=== PATIENT | male | born 1940 | race Caucasian/White ===

== ENCOUNTER 2018-03-13 21:14 | Inpatient (IN) | payer OTHER, MEDICARE ==
[~2018-03-13] VITALS: Ht 170.2 cm; Wt 77.3 kg
[2018-03-13 19:29] LABS: ABSOLUTE BASOPHIL COUNT 0 /CUMM (0.0-0.2); ABSOLUTE EOSINOPHIL COUNT 0 /CUMM (0.0-0.7); ABSOLUTE GRANULOCYTE CT 5.6 /CUMM (1.4-6.5); ABSOLUTE LYMPH COUNT 1.1 /CUMM (1.2-3.4); BASOPHIL % 0 % (0.0-2.0); EOSINOPHIL % 0.4 % (0-5); GRANULOCYTE % 72.5 % (42.2-75.2); MEAN CORPUSCULAR HGB 33.1 PG (27.0-31.0); MEAN CORPUSCULAR VOLUME 100.5 FL (80.0-94.0); MEAN PLATELET VOLUME 9.4 FL (7.4-10.4); PLATELET COUNT 360 /CUMM (130-400); RBC DISTRIBUTION WIDTH 17.5 % (11.5-14.5); RED BLOOD CELL CT 1.88 /CUMM (4.70-6.10); WHITE BLOOD CELL COUNT 7.8 /CUMM (4.8-10.8)
[2018-03-13 20:49] LABS: HEMATOCRIT 18.8 % (42-52)
--- NOTE | 2018-03-13 21:35 | ED AMS/SEIZURE/WEAK/DIZZY ---
History of Present Illness General Chief Complaint: General Adult Stated Complaint: SIB DR JONES FOR LOW H&H Source: patient Exam Limitations: no limitations Vital Signs & Intake/Output Vital Signs & Intake/Output Vital Signs Date Time Temp Pulse Resp B/P B/P Pulse O2 O2 Flow FiO2 Mean Ox Delivery Rate 03/14 0054 97.8 64 20 136/58 100 Room Air 03/136 98.1 84 22 106/57 98 Room Air 03/137 97.0 113 18 115/68 99 Room Air ED Intake and Output 03/14 0000 03/13 1200 Intake Total 0 Output Total 0 Balance 0 Intake, Oral 0 Output, Urine 0 Patient 167 lb Weight Weight Reported by Patient Measurement Method Allergies Coded Allergies: NO KNOWN ALLERGIES (12/05/12) Triage Note: PT TO TRIAGE SENT IN BY FOR LOW H/H. PT SAW TODAY FOR C/O DIFFICULTY BREATHING AND SWOLLEN LEGS. PT SL PALE IN COLOR. Triage Nurses Notes Reviewed? yes Onset: Gradual Duration: week(s):, waxing and waning Timing: recent history Injury Environment: home Severity: moderate Modifying Factors: Improves With: rest. Associated Symptoms: increase fatigue HPI: 77 yo gentleman presents with increased fatigue and weakness, Past History Travel History Traveled to [place] past 21 day No Medical History Any Pertinent Medical History? 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 No Review of Systems Review of Systems Constitutional: Reports: no symptoms. EENTM: Reports: no symptoms. Respiratory: Reports: no symptoms. Cardiovascular: Reports: no symptoms. GI: Reports: no symptoms. Genitourinary: Reports: no symptoms. Musculoskeletal: Reports: no symptoms. Skin: Reports: no symptoms. Neurological/Psychological: Reports: no symptoms. Hematologic/Endocrine: Reports: no symptoms. Immunologic/Allergic: Reports: no symptoms. All Other Systems: Reviewed and Negative Physical Exam Physical Exam General Appearance: well developed/nourished, no apparent distress Head: atraumatic, normal appearance Eyes: Bilateral: normal appearance. Ears, Nose, Throat: normal pharynx, normal ENT inspection Neck: normal inspection, supple, full range of motion Respiratory: normal breath sounds, chest non-tender, no respiratory distress, quiet respiration, lungs clear Cardiovascular: regular rate/rhythm Gastrointestinal: normal bowel sounds, soft, non-tender, no organomegaly Rectal: guiac + per pt report from MD's office. Back: normal inspection Extremities: normal range of motion Neurologic/Psych: no motor/sensory deficits, awake, alert, oriented x 3 Skin: intact, normal color, warm/dry Core Measures ACS in differential dx? No CVA/TIA Diagnosis No Sepsis Present: No Sepsis Focused Exam Completed? No Progress Differential Diagnosis: upper vs lower gi bleed. Plan of Care: Orders Procedure Date/time Status Nothing by Mouth 03/14 B Active TROPONIN LEVEL 03/14 1200 Active CBC WITHOUT DIFFERENTIAL 03/14 1200 Active EKG 03/14 1200 Active TROPONIN LEVEL 03/14 0400 Active CBC WITHOUT DIFFERENTIAL 03/14 0400 Active BASIC ELECTROLYTES PLUS BUN&CR 03/14 0400 Active EKG 03/14 0400 Active BLOOD PRODUCT PICKUP 03/14 0211 Active LEUKOCYTE POOR (PACKED CELLS) 03/14 0200 Active Weight 03/14 0120 Active Vital Signs 03/14 0120 Active Teach/Educate 03/14 0120 Active Pain Treatment and Response 03/14 0120 Active Nutritional Intake, Monitor 03/14 0120 Active Isolation 03/14 0120 Active Intake & Output 03/14 0120 Active Patient Care Conference 03/14 0120 Active Activity/Ambulation 03/14 0120 Active URINE OSMOLALITY 03/14 0040 Complete URINALYSIS 03/14 0030 Complete Lab Add-on Test 03/14 UNK Active FingerStick- Glucose 03/14 UNK Active LEUKOCYTE POOR (PACKED CELLS) 03/13 2334 Active Pathway - chart 03/13 232 Active House Staff 03/13 232 Active Patient Data 03/13 2325 Active Code Status 03/13 2325 Active Patient Data 03/13 2321 Active Saline Lock 03/13 2225 Active Misc Message 03/13 2225 Active ED Holding Orders 03/13 2225 Active Admit to inpatient 03/13 2225 Active Vital Signs 03/13 2225 Active Code Status 03/13 222 Complete Intake & Output 03/13 2216 Active TROPONIN LEVEL 03/13 214 Complete SERUM OSMOLALITY 03/13 2145 Complete B-TYPE NATRIURETIC PEP (BNP) 03/13 2145 Complete PARTIAL THROMBOPLASTIN TIME 03/13 2130 Complete PROTHROMBIN TIME 03/13 2130 Complete TYPE & SCREEN (NOT X-MATCH) 03/13 2130 Active COMPREHENSIVE METABOLIC PANEL 03/13 2128 Complete CBC WITHOUT DIFFERENTIAL 03/13 2128 Complete EKG 03/13 2122 Active VTE Mechanical Prophylaxis 03/13 UNK Active Current Medications Sig/Cesar Start time Last Medication Dose Stop Time Status Admin Atorvastatin Calcium 20 MG 1700 03/14 1700 AC (Lipitor) Pantoprazole Sodium 40 MG BID 03/14 0900 AC (Protonix) Insulin Aspart 0 TIDAC 03/14 0800 AC (NovoLOG) Ibuprofen 600 MG Q6 03/13 2359 AC 03/14 (Motrin) 03/14 1801 0002 Acetaminophen 325 MG Q6 PRN 03/13 2330 AC (Tylenol) Laboratory Tests 03/14/18 0040: Urine Osmolality 03/14/18 0040: Urinalysis LIGHT H, Urine Color YEL, Urine Clarity HAZY H, Urine pH 6.0, Ur Specific [place] 1.020, Urine Protein TRACE H, Urine Ketones NEG, Urine Nitrite NEG, Urine Bilirubin NEG, Urine Urobilinogen 1.0, Ur Leukocyte Esterase NEG, Ur Microscopic SEDIMENT EXAMINED, Urine RBC 1-3, Urine WBC 3-5 H, Ur Epithelial Cells FEW, Urine Bacteria RARE H, Urine Mucus FEW, Urine Hemoglobin NEG, Urine Glucose NEG 03/13/182144: Anion Gap 13, Estimated GFR 49 L, BUN/Creatinine Ratio 17.9, Glucose 107 H, Serum Osmolality 273 L, Calcium 8.7, Total Bilirubin 0.7, AST 29, ALT 30, Alkaline Phosphatase 80, Troponin I < 0.01, [id number] Pept 2610 H, Total Protein 6.6, Albumin 3.8, Globulin 2.8, Albumin/Globulin Ratio 1.4, PT 20.0 H, INR 1.82 H, APTT 32, CBC w Diff NO MAN DIFF REQ, RBC 1.87 L, MCV 100.5 H, MCH 33.3 H, MCHC 33.1, RDW 18.0 H, MPV 8.6, Gran % 70.2, Lymphocytes % 15.0 L, Monocytes % 14.1 H, Eosinophils % 0.5, Basophils % 0.2, Absolute Granulocytes 6.4, Absolute Lymphocytes 1.4, Absolute Monocytes 1.3 H, Absolute Eosinophils 0, Absolute Basophils 0 03/13/18 2130: Troponin I Cancelled Initial ED EKG: AFIB Departure Departure Disposition: STILL A PATIENT Condition: Stable Clinical Impression Primary Impression: Anemia Secondary Impressions: GI bleed Referrals: Dmitry MAYEN,Darin Mcmanus (PCP/Family) Departure Forms: Customer Survey General Discharge Information Comments 03/13/18, 23:28... discussed with karis rodas (GI) who will evaluate patient in AM. stable for gen med (pt not orthostatic) Admission Note Spoke With: Joby Rossi MD Documentation of Exam: Documentation of any treatments & extenuating circumstances including Concerns Regarding Discharge (functional status, medication knowledge or non-compliance, living conditions, etc.) that warrant an admission rather than observation: pt with hgb 6 as outpt, confirmed upon arrival... dark stools, guiac positive, ... not orthostatic..pt on eliquis. pt merits blood transfusion (consent in chart), stable for gen med... call placed to GI. Critical Care Note Critical Care Note Critical Care Time: 30-74 min
[2018-03-13 21:59] LABS: ABSOLUTE BASOPHIL COUNT 0 /CUMM (0.0-0.2); ABSOLUTE EOSINOPHIL COUNT 0 /CUMM (0.0-0.7); ABSOLUTE GRANULOCYTE CT 6.4 /CUMM (1.4-6.5); ABSOLUTE LYMPH COUNT 1.4 /CUMM (1.2-3.4); ABSOLUTE MONOCYTE COUNT 1.3 /CUMM (0.10-0.60); BASOPHIL % 0.2 % (0.0-2.0); EOSINOPHIL % 0.5 % (0-5); GRANULOCYTE % 70.2 % (42.2-75.2); MEAN CORPUSCULAR HGB 33.3 PG (27.0-31.0); MEAN CORPUSCULAR HGB CONC 33.1 G/DL (33.0-37.0); MEAN CORPUSCULAR VOLUME 100.5 FL (80.0-94.0); MEAN PLATELET VOLUME 8.6 FL (7.4-10.4); PLATELET COUNT 355 /CUMM (130-400); RED BLOOD CELL CT 1.87 /CUMM (4.70-6.10); WHITE BLOOD CELL COUNT 9.1 /CUMM (4.8-10.8)
[2018-03-13 22:01] LABS: HEMATOCRIT 18.8 % (42-52)
[2018-03-13 22:09] LABS: PTT 32 SEC (25-37)
--- NOTE | 2018-03-13 23:29 | History & Physical ---
Mohini Hurtado 03/13/18 8271: General Information and HPI MD Statement: I have seen and personally examined FRANKI LAMB and documented this H&P. The patient is a 77 year old M who presented with a patient stated chief complaint of [GI Bleed]. Source of Information: patient, old records Exam Limitations: no limitations History of Present Illness: Mr. Lamb is a 77yo M w/ PMH of diverticulosis, polyps, HTN, remote bypass in 1997 w/ stents, CHF? (last echo in 2004), hx of A-fib on Amiodaron and Eliquis, prediabetic on metformin 500 BID, CC: Sent in by Dr. Andres for dropped H/H Patient was complaining of exertional shortness of breath/dyspnea/drops for the past 2 weeks, and he got tested for CBCs and stool studies at around 3 PM prior this admission. He was called later by his PCP Dr. Andres to go to the ER to evaluate for dropped H&H. He was also told to stop his eliquis (he had morning dose). His was on oxygen 10/06, so he does most of houseworks and had been feeling slightly exertional SOB/lethargic. He denied oj blood from stool/denied nausea/vomiting, and never had these before. He had an EGD prob 18 yrs ago. Denied NSAID use. His next colonoscopy not scheduled due to age. He had weight loss from 07/2017 due to housework. During our clinical interaction, patient denied fever/night sweat/cough/SOB/ Chest Pain/Palpitation/Abdominal pain/urinary abnormality, or other skin/ musculoskeletal/neurological disorders/mood change/insomnia/dietary/appetite change. 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 Ambulation: independent IADLs Independent: shopping, housework, finances, food prep, telephone, transportation , medication admin. Review of Systems Review of Systems Constitutional: Reports: see HPI. Exam & Diagnostic Data Last 24 Hrs of Vital Signs/I&O Vital Signs Date Time Temp Pulse Resp B/P B/P Pulse O2 O2 Flow FiO2 Mean Ox Delivery Rate 03/13 2226 98.1 84 22 106/57 98 Room Air 03/13 2127 97.0 113 18 115/68 99 Room Air Physical Exam General Appearance Alert, Oriented X3, Cooperative, No Acute Distress Skin No Rashes, No Breakdown, No Significant Lesion Skin Temp/Moisture Exam: Warm/Dry Sepsis Skin Exam (color): Normal for Ethnicity HEENT Atraumatic Neck Supple, No JVD Cardiovascular distant heart sound but appeared to be regular Lungs Clear to Auscultation, Normal Air Movement Abdomen Normal Bowel Sounds, Soft, No Tenderness Neurological Normal Speech Extremities Normal Pulses, +1 BLE edema Rectal No Hemorrhoids, Guaiac positive visible black stool residue but no oj blood/bleeding. no tenderness on exam Last 24 Hrs of Labs/Isaias: Laboratory Tests 03/13/182144: Anion Gap 13, Estimated GFR 49 L, BUN/Creatinine Ratio 17.9, Glucose 107 H, Calcium 8.7, Total Bilirubin 0.7, AST 29, ALT 30, Alkaline Phosphatase 80, Troponin I < 0.01, Total Protein 6.6, Albumin 3.8, Globulin 2.8, Albumin/ Globulin Ratio 1.4, PT 20.0 H, INR 1.82 H, APTT 32, CBC w Diff NO MAN DIFF REQ , RBC 1.87 L, MCV 100.5 H, MCH 33.3 H, MCHC 33.1, RDW 18.0 H, MPV 8.6, Gran % 70.2, Lymphocytes % 15.0 L, Monocytes % 14.1 H, Eosinophils % 0.5, Basophils % 0.2, Absolute Granulocytes 6.4, Absolute Lymphocytes 1.4, Absolute Monocytes 1.3 H, Absolute Eosinophils 0, Absolute Basophils 0 03/13/182129: Troponin I Cancelled Assessment/Plan Assessment: Mr. Lamb is a 77yo M w/ PMH of diverticulosis, polyps, HTN, remote bypass in 1997 w/ stents, CHF? (last echo in 2004), hx of A-fib on Amiodaron and Eliquis, prediabetic on metformin 500 BID, CC: Sent in by Dr. Andres for dropped H/H Patient was complaining of exertional shortness of breath/dyspnea/drops for the past 2 weeks, and he got tested for CBCs and stool studies at around 3 PM prior this admission. He was called later by his PCP Dr. Andres to go to the ER to evaluate for dropped H&H. He was also told to stop his eliquis (he had morning dose). His was on oxygen 10/06, so he does most of houseworks and had been feeling slightly exertional SOB/lethargic. He denied oj blood from stool/denied nausea/vomiting, and never had these before. He had an EGD prob 18 yrs ago. Denied NSAID use. His next colonoscopy not scheduled due to age. He had weight loss from 07/2017 due to housework. During our clinical interaction, patient denied fever/night sweat/cough/SOB/ Chest Pain/Palpitation/Abdominal pain/urinary abnormality, or other skin/ musculoskeletal/neurological disorders/mood change/insomnia/dietary/appetite change. On admission, Vitals: Stable afebrile, tachycardia on presentation 114 decreased to 84, room air -CBC: H/H 6.2/18.8, no leukocytosis -BMP: Na 125, K 4.5, Cr 1.4 elevated acutely from before -Misc: Colonoscopy 06/20/2015 IMPRESSION: 1. Polyps. 2. Diverticulosis. -Interventions in ER: PPI x 1, tylenol, motrin Problem list & Assessment: #Upper GI bleed of unknown source: dark stool without BRBPR. #Hyponatreamia: unknkown etiology, could be from use of lasix? #CHANEL #PMH of diverticulosis, polyps, HTN, remote bypass in 1997 w/ stents, CHF? (last echo in 2004) w/ chronic BLE edema, hx of A-fib on Amiodarone and Eliquis, prediabetic on metformin 500 BID Hospital Course: - Admit to Gen Med - Supplemental O2 as needed if dyspnea - Novolog SS/AccuChek - 2U PRBC transfusion to keep Hb>8. Recheck CBC in 6 hours - Monitor for resp distress during PRBC transfusion and lasix 20mg in between as needed. - Hold all anti-hypertensives and Eliquis - Pending GI consult by Dr. Thompson - Pending CXR/ProBNP to rule out CHF - Pending Cardio consult by Dr. Orozco in the AM, with record of recent Echo. - EKG/Trop x 3 to rule out type 2 NH - Pending Serum/urine OSM for hyponatremia. - Both CHANEL and hyponatremia could be due to lasix use recently. Hold lasix for now. - Hold all fluids for now pending rule out CHF DVT prophylaxis ALPS NPO Full Code As Ranked By This Provider Problem List: 1. GI bleed 2. Anemia Core Measures/Misc (08/04) Acute Coronary Syndrome ACS Diagnosis: No Congestive Heart Failure Congestive Heart Failure Diagnosis No Cerebrovascular Accident CVA/TIA Diagnosis: No VTE (View Protocol) VTE Risk Factors Age>40 No Mechanical VTE Prophylaxis d/t N/A MechProphylax Ordered No VTE Pharm Prophylaxis d/t Medical Contraindication Sepsis (View protocol) Sepsis Present: No Janet Milton 03/14/18 0031: Resident Review Statement Resident Statement: examined this patient, discussed with campus recruiting intern Other Findings: Patient is a 77-year-old male with past medical history of A. fib on Eliquis, hypertension, diabetes, CABG with stents who was sent in to the ED by Dr. Andres for low H&H. Patient reports he has been feeling very tired, lethargic, fatigued for the past 2 weeks. He normally does all the housework including grocery shopping, cooking , taking care of dogs, doing laundry. However for the past 2 weeks he has been feeling increasingly short of breath on exertion. His appetite has been poor and he also noted dark stools. Denies any bright red blood per rectum, hematemesis or hemoptysis. He went to see his PCP today for the above symptoms and that is done at his office showed an H&H of 6. 2/18.8. Dr. Andres asked him to stop his Eliquis and took him off ramipril, amlodipine due to low blood pressure. Patient reports that he has recently noted increased swelling in his legs for which she was started on Lasix. He denies any NSAID use, history of ulcers in the past. His last endoscopy was about 18 years ago. He had multiple colonoscopies which revealed polyps and diverticulosis. Of note patient had noted a weight loss of about 8 pounds in the last 6 months which he says was due to overexertion. He is an ex-smoker and quit about 20 years ago. Denies any chest pain, palpitations, fevers, chills, nausea, vomiting, diarrhea, constipation. In the ED with a blood pressure of 115/68. Labs significant for an H&H of 6.2 /18.8(10.3 in Nov 2017), MCV 100.5, sodium 125(132 in Nov 2017), creatinine 1.4(baseline 1), troponin 0.01, INR 1.82 Rectal exam: Guaiac positive, no hemorrhoids, dark stool seen at anus, no oj bleeding EKG A. 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 fib on Eliquis Leg edema? CHF Prediabetes Plan * Admit patient to [facility] * Vitals per protocol * 2 wide bore IVs at all times * CBC every 8 hours * Type and screen * Transfuse 2 units of blood to keep hemoglobin above 8 * IV Lasix in between transfusions * Eliquis and aspirin held for bleeding * Hold all blood pressure medications(amlodipine 5 mg, metoprolol 100 mg, ramipril 10 mg) for borderline blood pressure. Please resume once blood pressure stable * GI consult with Dr. Thompson in a.m. * We will keep the patient nothing by mouth for possible endoscopy in a.m. * Check chest x-ray and proBNP to rule out CHF * Echocardiogram recently done at Dr. Orozco's office. Cardio consult with Dr. Orozco in a.m. * CHANEL likely secondary to Lasix started recently. Holding Lasix for now. We will hold off on any fluids until CHF ruled out. * Serum/urine osmolalities for hyponatremia, could be secondary to the Lasix started recently/SIADH * Fluid restriction 1200ml * Check BeP in a.m. * 3 times a day Accu-Cheks, low-dose sliding scale * DVT prophylaxis Alps * full code Joby Rossi 03/14/18 0552: Attending MD Review Statement Attending Statement Attending MD Statement: examined this patient, discuss w/resident/PA/LICENSED WEIGHER, agreed w/resident/PA/LICENSED WEIGHER, reviewed EMR data (avail), reviewed images, amended to note Attending Assessment/Plan: CC: Low hemoglobin PMH: HTN, DM, CAD S/P CABG, history of diverticulosis, A. fib Patient was sent by his primary care physician for low H&H. His last 2 weeks patient has been feeling poorly, lethargic, dyspnea on exertion and lightheaded when he is changing his position suddenly. He also noticed worsening leg swelling since last 2 weeks and black colored stools. He has been taking care of all household stuff as his is oxygen dependent and was not taking care of his health according to him. So finally he followed up with primary care physician who obtain lab work and his H&H was low, stool was positive for guaiac so he was sent to ER. Currently denies any chest pain, chest tightness, palpitations, dizziness, abdominal pain, nausea, vomiting, syncope or fall. He recently had tooth infection for which he was started on antibiotics for 4 days but he developed diarrhea so antibiotics were discontinued. He was also prescribed pain medications but he denies taking [id number] Motrin, Aleve or any pain medication as he is on aspirin. Vitals: Temperature 97.0, pulse 113, RR 18, blood pressure 115/68, saturating well on room air. On exam: A O 3, cooperative, no acute distress, neck supple, JVD normal, no lymphadenopathy, mucosa moist, no focal neurological deficit, +3 lower extremity edema, no obvious skin rashes or inflammation CVS: S1-S2, RRR. RS: Clear to auscultate bilaterally. Abdomen: Soft, NT, ND, bowel sounds present. CXR: No acute pulmonary findings. Mildly enlarged cardiac silhouette. Assessment and plan 77-year-old male with multiple comorbidities as mentioned above presented in ER for feeling poorly, lethargic, dyspnea on exertion, on and off lightheadedness, leg swelling and black colored stool since last 2 weeks. Denied any over-the- counter NSAID use, abdominal pain, nausea vomiting, oj blood in the stool or vomiting. Denies any chest pain or chest tightness. His hemoglobin is 6.2 dropped from 10.3 in November, rectal examination shows guaiac positive stool but no oj blood. Orthostatic negative. His ferritin was 14.1 done outpatient. He is also found to have hyponatremia and acute kidney injury, probably secondary to Lasix and dehydration. Intentional weight loss of 7 pounds over 7 months secondary to diet changes. + Acute blood loss anemia probably secondary to upper GI bleed + Melena + hyponatremia + CHANEL + History of HTN, DM, CAD S/P CABG, history of diverticulosis, A. fib - Admit to general medicine - 2 wide bore peripheral lines - Type and screen 2 units and transfuse - Also check iron, TIBC from the initial sample - Repeat H&H in 6 hours - GI consult - IV Protonix 40 mg twice a day - Hold Eliquis, aspirin - Hold antihypertensives and Lasix - Check proBNP, serial troponin and ECGs - IV Lasix 20 mg after 2 transfusions if patient appears overloaded or proBNP significantly elevated - Check sodium in the morning, saline lock IV - Check TSH, cortisol - Check serum osmolality and urine osmolality - NPO
[2018-03-14 00:54] VITALS: BP 136/58
--- NOTE | 2018-03-14 01:45 | RADIOLOGY REPORT ---
EXAMINATION: XR PORTABLE CHEST CLINICAL INFORMATION: Leg swelling, rule out vascular congestion COMPARISON: 02/14/2011 TECHNIQUE: Portable frontal view of the chest was obtained. FINDINGS: Lung volumes are symmetric. No focal consolidation is seen. No evidence of pneumothorax, pleural effusion, or pulmonary edema. The cardiac silhouette appears mildly enlarged for technique. Calcification is present at the aortic arch. Sternal wires are present. No acute osseous findings are seen. IMPRESSION: No acute pulmonary findings. Mildly enlarged cardiac silhouette.
[2018-03-14 04:39] LABS: ABSOLUTE BASOPHIL COUNT 0 /CUMM (0.0-0.2); ABSOLUTE EOSINOPHIL COUNT 0 /CUMM (0.0-0.7); ABSOLUTE LYMPH COUNT 1.2 /CUMM (1.2-3.4); ABSOLUTE MONOCYTE COUNT 0.9 /CUMM (0.10-0.60); BASOPHIL % 0.4 % (0.0-2.0); EOSINOPHIL % 0.5 % (0-5); GRANULOCYTE % 69.8 % (42.2-75.2); MEAN CORPUSCULAR HGB 32.9 PG (27.0-31.0); MEAN CORPUSCULAR HGB CONC 33.2 G/DL (33.0-37.0); MEAN CORPUSCULAR VOLUME 99.2 FL (80.0-94.0); MEAN PLATELET VOLUME 8.7 FL (7.4-10.4); PLATELET COUNT 307 /CUMM (130-400); RBC DISTRIBUTION WIDTH 17.5 % (11.5-14.5); WHITE BLOOD CELL COUNT 7.1 /CUMM (4.8-10.8)
[2018-03-14 04:45] LABS: HEMATOCRIT 19.9 % (42-52)
--- NOTE | 2018-03-14 05:54 | Admission Certification ---
Admission Certification Certification Statement - As attending physician, I certify that at the time of - admission, based on clinical presentation, severity of - symptoms, need for further diagnostic testing and - therapeutic interventions, and risk of adverse outcomes - without in-hospital treatment, in my clinical assessment, - this patient requires an acute hospital stay for a minimum - of two nights or longer. I have also considered psychsocial - factors such as support system, advanced age, financial - issues, cognitive issues, and failed out-patient treatments, - past re-admission history, safety of patient, and lack of - compliance as applicable. Specific rationale supporting this admission is: Anemia secondary to blood loss, melena, acute kidney injury
[2018-03-14 06:20] VITALS: BP 126/68
--- NOTE | 2018-03-14 08:03 | PN- Housestaff ---
Subjective Follow-up For: Upper GI bleed Complaints: no complaints Subjective: Patient seen and examined at bedside no overnight events. Denies blood in urine , bloody bowel movement, nausea, vomiting, abdominal pain, chest pain, shortness of breath. Review of Systems Constitutional: Reports: no symptoms, see HPI. Objective Last 24 Hrs of Vital Signs/I&O Vital Signs Date Time Temp Pulse Resp B/P B/P Pulse O2 O2 Flow FiO2 Mean Ox Delivery Rate 03/14 08 Nasal 2.0L Cannula 03/14 620 98.6 85 20 126/68 93 Room Air 03/14 0054 97.8 64 20 136/58 100 Room Air 03/13 2226 98.1 84 22 106/57 98 Room Air 03/13 2127 97.0 113 18 115/68 99 Room Air Intake & Output 03/14 1600 03/14 0800 03/14 0000 Intake Total 800 860 0 Output Total 700 0 Balance 100 860 0 Intake, IV 800 Intake, Oral 800 60 0 Output, Urine 700 0 Patient 170 lb 167 lb Weight Weight Bed scale Reported by Patient Measurement Method Physical Exam General Appearance: Alert, Oriented X3, Cooperative, No Acute Distress Cardiovascular: Regular Rate, Normal S1, Normal S2, No Murmurs Lungs: Clear to Auscultation Abdomen: Soft, No Tenderness, No Hepatospenomegaly Neurological: Strength at 5/5 X4 Ext, Normal Tone, Sensation Intact Current Medications: Current Medications Sig/Cesar Start time Last Medication Dose Route Stop Time Status Admin Acetaminophen 325 MG Q6 PRN 03/13 2330 AC PO Atorvastatin Calcium 20 MG 1700 03/14 1700 AC PO Furosemide 20 MG ONCE ONE 03/14 0645 DC 03/14 IV PUSH 03/14 0646 0831 Ibuprofen 600 MG Q6 03/13 2359 DC 03/14 PO 03/14 1801 0609 Ibuprofen 0 .STK-MED ONE 03/13 2344 DC PO Insulin Aspart 0 TIDAC 03/14 0800 AC SC Pantoprazole Sodium 40 MG BID 03/14 0900 AC 03/14 IV 0825 Pantoprazole Sodium 0 .STK-MED ONE 03/13 2344 DC IV Pantoprazole Sodium 40 MG ONCE ONE 03/13 2330 DC 03/14 IV 03/13 2331 0002 Last 24 Hrs of Lab/Isaias Results Last 24 Hrs of Labs/Mics: Laboratory Tests 03/14/18 1122: PT 17.1 H, INR 1.56 H 03/14/18 0941: CBC w Diff NO MAN DIFF REQ, RBC 2.78 L, MCV 97.5 H, MCH 32.3 H, MCHC 33.1, RDW 17.3 H, MPV 9.1, Gran % 73.5, Lymphocytes % 12.4 L, Monocytes % 12.3 H, Eosinophils % 0.3, Basophils % 1.5, Absolute Granulocytes 6.3, Absolute Lymphocytes 1.1 L, Absolute Monocytes 1.1 H, Absolute Eosinophils 0, Absolute Basophils 0.1 03/14/18 0410: Anion Gap 12, Estimated GFR 54 L, BUN/Creatinine Ratio 20.0, Iron 25 L, TIBC 425, Ferritin 14.1 L, Troponin I 0.01, TSH 4.260 H, Cortisol AM Sample 9.3, CBC w Diff NO MAN DIFF REQ, RBC 2.00 L, MCV 99.2 H, MCH 32.9 H, MCHC 33.2, RDW 17.5 H, MPV 8.7, Gran % 69.8, Lymphocytes % 17.2 L, Monocytes % 12.1 H, Eosinophils % 0.5, Basophils % 0.4, Absolute Granulocytes 5.0, Absolute Lymphocytes 1.2, Absolute Monocytes 0.9 H, Absolute Eosinophils 0, Absolute Basophils 0 03/14/18 0040: Urine Osmolality 03/14/18 0040: Urinalysis LIGHT H, Urine Color YEL, Urine Clarity HAZY H, Urine pH 6.0, Ur Specific [place] 1.020, Urine Protein TRACE H, Urine Ketones NEG, Urine Nitrite NEG, Urine Bilirubin NEG, Urine Urobilinogen 1.0, Ur Leukocyte Esterase NEG, Ur Microscopic SEDIMENT EXAMINED, Urine RBC 1-3, Urine WBC 3-5 H, Ur Epithelial Cells FEW, Urine Bacteria RARE H, Urine Mucus FEW, Urine Hemoglobin NEG, Urine Glucose NEG 03/13/18 2145: Anion Gap 13, Estimated GFR 49 L, BUN/Creatinine Ratio 17.9, Glucose 107 H, Serum Osmolality 273 L, Calcium 8.7, Total Bilirubin 0.7, AST 29, ALT 30, Alkaline Phosphatase 80, Troponin I < 0.01, Knk-K-Bhykjviweuv Pept 2610 H, Total Protein 6.6, Albumin 3.8, Globulin 2.8, Albumin/Globulin Ratio 1.4, PT 20.0 H, INR 1.82 H, APTT 32, CBC w Diff NO MAN DIFF REQ, RBC 1.87 L, MCV 100.5 H, MCH 33.3 H, MCHC 33.1, RDW 18.0 H, MPV 8.6, Gran % 70.2, Lymphocytes % 15.0 L, Monocytes % 14.1 H, Eosinophils % 0.5, Basophils % 0.2, Absolute Granulocytes 6.4, Absolute Lymphocytes 1.4, Absolute Monocytes 1.3 H, Absolute Eosinophils 0, Absolute Basophils 0 03/13/18 2130: Troponin I Cancelled Assessment/Plan Assessment: Patient is a 77-year-old male with past medical history of A. fib on Eliquis, hypertension, diabetes, CABG with stents who was sent in to the ED by Dr. Andres for low H&H secondary to GI bleed. Assessment and plan 1. Blood loss anemia secondary to GI bleed 2. Hyponatremia 3. Acute kidney injury * Anemia-patient got 2 units of transfusion. Post transmission hemoglobin 9. We'll watch for further bleeding. Daily CBC. Gastroenterology on board. Patient is nothing by mouth in view of possible endoscope. Anticoagulant held. Avoid NSAIDs. * Hyponatremia-can be secondary due to dehydration/Lasix. Today morning sodium improved to 128. Daily BEP. * Acute kidney injury. Can be secondary due to Lasix. Lasix held upon admission in view of further worsening kidney numbers. Discussed with cardiology regarding his questionable CHF history. Dr. Orozco though denied that he doesn't have any CHF history he said he would consult on him today. * Continue Protonix, Atorvastatin, insulin. Code-full code Diet-diabetic diet DVT prophylaxis-Alps Problem List: 1. GI bleed 2. Anemia Pain Ratin Pain Location: None Pain Goal: Remain pain free Pain Plan: Tylenol Tomorrow's Labs & Rationales: CBC,BEP
--- NOTE | 2018-03-14 09:18 | PN- Student ---
Subjective Subjective: No acute events overnight. Patient denies any headaches, changes in urination, changes in bowel movements, stomach pain, changes in his vision, changes in appetite, cough. He complains on pain in his legs, going from the knees down. ROS: See HPI Objective Objective: Vital Signs Date Time Temp Pulse Resp B/P B/P Pulse O2 O2 Flow FiO2 Mean Ox Delivery Rate 03/14 0800 Nasal 2.0L Cannula 03/14 0620 98.6 85 20 126/68 93 Room Air 03/14 0054 97.8 64 20 136/58 100 Room Air 03/13 2226 98.1 84 22 106/57 98 Room Air 03/13 2127 97.0 113 18 115/68 99 Room Air ED Intake and Output 03/14 0000 03/13 1200 Intake Total 0 Output Total 0 Balance 0 Intake, Oral 0 Output, Urine 0 Patient 167 lb Weight Weight Reported by Patient Measurement Method Patient's O2 saturation dropped to 83 while I was interviewing him. He was placed on 2L of O2 via nasal cannula. Both legs are edematous (+2, pitting edema ). Lungs are clear to auscultation. S1, S2 were heard with no additional murmurs present. Glucose level was 116 at 8:25am. Assessment/Plan Assessment: Woody Phelps is a 77 y/o male with a past medical history of diverticulitis, polyps, HTN, remote bypass in 1997 with stents, Afib on Warfarin & DM. He complains of exertional dyspnea for the last two weeks, increased swelling of his legs and black colored stools. He went to his PCP (Dr. Andres) who performed a CBC and guaic test. He was sent here by his PCP after the results came back showing Hgb of 6.2, Hct of 18.8 and his guaiac test came back positive. His PCP also told him to stop his medications. On admission, Na+ was 125 and creatinine was 1.4. Chest X-Ray showed an enlarged cardiac silhoutte. Patient has received 2 units of blood transfusions and labs are pending. NT- proBNP is markedly increased (2,610), suggesting hemodynamic stress on the heart. Problem list and plan: 1. Symptomatic anemia: - Follow up labs. - GI consult to assess the reason for GI bleeding, tests (if any) to be performed and steps to follow in his management. - Cardio consult to assess possible CHF, medications to stop altogether, resume or change based on his diagnosis. Ask about the administration of blood transfusion as patient could possibly have CHF. 3. CHANEL: - Hydrate the patient with normal saline to increase his sodium levels and correct his creatinine. Dehydration and/or diuretic use could be the root of patient's altered kidney function. 4. Diabetes: - Heart healthy diet, decrease CHO. - Monitor blood sugar levels
[2018-03-14 09:57] LABS: ABSOLUTE BASOPHIL COUNT 0.1 /CUMM (0.0-0.2); ABSOLUTE EOSINOPHIL COUNT 0 /CUMM (0.0-0.7); ABSOLUTE GRANULOCYTE CT 6.3 /CUMM (1.4-6.5); ABSOLUTE LYMPH COUNT 1.1 /CUMM (1.2-3.4); ABSOLUTE MONOCYTE COUNT 1.1 /CUMM (0.10-0.60); BASOPHIL % 1.5 % (0.0-2.0); EOSINOPHIL % 0.3 % (0-5); GRANULOCYTE % 73.5 % (42.2-75.2); MEAN CORPUSCULAR HGB 32.3 PG (27.0-31.0); MEAN CORPUSCULAR HGB CONC 33.1 G/DL (33.0-37.0); MEAN CORPUSCULAR VOLUME 97.5 FL (80.0-94.0); MEAN PLATELET VOLUME 9.1 FL (7.4-10.4); PLATELET COUNT 324 /CUMM (130-400); RBC DISTRIBUTION WIDTH 17.3 % (11.5-14.5); WHITE BLOOD CELL COUNT 8.6 /CUMM (4.8-10.8)
--- NOTE | 2018-03-14 10:32 | PN- Att Addend ---
Attending Addendum Attending Brief Note Patient seen and examined, he currently denies any complaints. He is currently requiring oxygen but address denies any shortness of breath. H&H from this morning is pending. Patient did receive 2 units of RBC transfusion. Denies any abd pain. Vital Signs Date Time Temp Pulse Resp B/P B/P Pulse O2 O2 Flow FiO2 Mean Ox Delivery Rate 03/14 0800 Nasal 2.0L Cannula 03/14 0620 98.6 85 20 126/68 93 Room Air 03/14 0054 97.8 64 20 136/58 100 Room Air 03/13 2226 98.1 84 22 106/57 98 Room Air 03/13 2127 97.0 113 18 115/68 99 Room Air on exam; aox3, nad. cv; s1, s2, rrr resp; clear abd; soft, nt, bs+ ext: 1+ edema Laboratory Tests 03/14 03/14 03/14 0941 0410 0040 Chemistry Sodium (137 - 145 mmol/L) 128 L Potassium (3.5 - 5.1 mmol/L) 4.9 Chloride (98 - 107 mmol/L) 95 L Carbon Dioxide (22 - 30 mmol/L) 22 Anion Gap (5 - 16) 12 BUN (9 - 20 mg/dL) 26 H Creatinine (0.7 - 1.2 mg/dL) 1.3 H Estimated GFR (>60 ml/min) 54 L BUN/Creatinine Ratio (7 - 25 %) 20.0 Iron (49 - 181 ug/dL) 25 L TIBC (261 - 462 ug/dL) 425 Ferritin (17.9 - 464 ng/mL) 14.1 L Troponin I (<0.11 ng/ml) 0.01 TSH (0.270 - 4.200 uIU/mL) 4.260 H Cortisol AM Sample (4.46 - 22.7 ug/dL) 9.3 Hematology CBC w Diff Pending NO MAN DIFF REQ WBC (4.8 - 10.8 /CUMM) Pending 7.1 RBC (4.70 - 6.10 /CUMM) Pending 2.00 L Hgb (14.0 - 18.0 G/DL) Pending 6.6 *L Hct (42 - 52 %) Pending 19.9 *L MCV (80.0 - 94.0 FL) Pending 99.2 H MCH (27.0 - 31.0 PG) Pending 32.9 H MCHC (33.0 - 37.0 G/DL) Pending 33.2 RDW (11.5 - 14.5 %) Pending 17.5 H Plt Count (130 - 400 /CUMM) Pending 307 MPV (7.4 - 10.4 FL) Pending 8.7 Gran % (42.2 - 75.2 %) 69.8 Lymphocytes % (20.5 - 51.1 %) 17.2 L Monocytes % (1.7 - 9.3 %) 12.1 H Eosinophils % (0 - 5 %) 0.5 Basophils % (0.0 - 2.0 %) 0.4 Absolute Granulocytes (1.4 - 6.5 /CUMM) 5.0 Absolute Lymphocytes (1.2 - 3.4 /CUMM) 1.2 Absolute Monocytes (0.10 - 0.60 /CUMM) 0.9 H Absolute Eosinophils (0.0 - 0.7 /CUMM) 0 Absolute Basophils (0.0 - 0.2 /CUMM) 0 Urines Urine Osmolality (300 - 1000 MOSM/KG) 03/14 03/13 0040 2145 Chemistry Sodium (137 - 145 mmol/L) 125 L Potassium (3.5 - 5.1 mmol/L) 4.5 Chloride (98 - 107 mmol/L) 92 L Carbon Dioxide (22 - 30 mmol/L) 21 L Anion Gap (5 - 16) 13 BUN (9 - 20 mg/dL) 25 H Creatinine (0.7 - 1.2 mg/dL) 1.4 H Estimated GFR (>60 ml/min) 49 L BUN/Creatinine Ratio (7 - 25 %) 17.9 Glucose (65 - 99 mg/dL) 107 H Serum Osmolality (285 - 295 MOSM/KG) 273 L Calcium (8.4 - 10.2 mg/dL) 8.7 Total Bilirubin (0.2 - 1.3 mg/dL) 0.7 AST (17 - 59 U/L) 29 ALT (21 - 72 U/L) 30 Alkaline Phosphatase (< 127 U/L) 80 Troponin I (<0.11 ng/ml) < 0.01 [id number] Pept (<125 pg/mL) 2610 H Total Protein (6.3 - 8.2 g/dL) 6.6 Albumin (3.5 - 5.0 g/dL) 3.8 Globulin (1.9 - 4.2 gm/dL) 2.8 Albumin/Globulin Ratio (1.1 - 2.2 %) 1.4 Coagulation PT (9.4 - 12.5 SEC) 20.0 H INR (0.90 - 1.17) 1.82 H APTT (25 - 37 SEC) 32 Hematology CBC w Diff NO MAN DIFF REQ WBC (4.8 - 10.8 /CUMM) 9.1 RBC (4.70 - 6.10 /CUMM) 1.87 L Hgb (14.0 - 18.0 G/DL) 6.2 *L Hct (42 - 52 %) 18.8 *L MCV (80.0 - 94.0 FL) 100.5 H MCH (27.0 - 31.0 PG) 33.3 H MCHC (33.0 - 37.0 G/DL) 33.1 RDW (11.5 - 14.5 %) 18.0 H Plt Count (130 - 400 /CUMM) 355 MPV (7.4 - 10.4 FL) 8.6 Gran % (42.2 - 75.2 %) 70.2 Lymphocytes % (20.5 - 51.1 %) 15.0 L Monocytes % (1.7 - 9.3 %) 14.1 H Eosinophils % (0 - 5 %) 0.5 Basophils % (0.0 - 2.0 %) 0.2 Absolute Granulocytes (1.4 - 6.5 /CUMM) 6.4 Absolute Lymphocytes (1.2 - 3.4 /CUMM) 1.4 Absolute Monocytes (0.10 - 0.60 /CUMM) 1.3 H Absolute Eosinophils (0.0 - 0.7 /CUMM) 0 Absolute Basophils (0.0 - 0.2 /CUMM) 0 Urines Urinalysis LIGHT H Urine Color (YEL,AMB,STR) YEL Urine Clarity (CLEAR) HAZY H Urine pH (5.0 - 8.0) 6.0 Ur Specific [place] (1.001 - 1.035) 1.020 Urine Protein (NEG,<30 MG/DL) TRACE H Urine Ketones (NEG) NEG Urine Nitrite (NEG) NEG Urine Bilirubin (NEG) NEG Urine Urobilinogen (0.1 - 1.0 EU/dl) 1.0 Ur Leukocyte Esterase (NEG) NEG Ur Microscopic SEDIMENT EXAMINED Urine RBC (0 - 5 /HPF) 1-3 Urine WBC (0 - 2 /HPF) 3-5 H Ur Epithelial Cells (NONE,FEW) FEW Urine Bacteria (NEG/NONE) RARE H Urine Mucus (FEW,NONE) FEW Urine Hemoglobin (NEG) NEG Urine Glucose (N MG/DL) NEG 03/13 2130 Chemistry Troponin I Cancelled A/P; 77 y/o M with pmh sig for diverticulosis, polyps, HTN, remote bypass in 1997 w/ stents, ? CHF hx of A-fib on Amiodaron and Eliquis, prediabetic, admitted with symptomatic anemia secondary to acute blood loss from GI bleed. Patient currently nothing by mouth. Patient has been started on IV PPI. Eliquis has bene discontinued. Please consult cardiology. Awaiting GI evaluation. Avoid too much IVf 2/2 to questionable Hx of CHF. We need to discuss this with cardiology. DVT px; ALPS.
[2018-03-14 10:41] LABS: HEMATOCRIT 27.1 % (42-52); RED BLOOD CELL CT 2.78 /CUMM (4.70-6.10)
[2018-03-14 12:31] LABS: PT 17.1 SEC (9.4-12.5)
[2018-03-14 14:30] VITALS: BP 110/72
--- NOTE | 2018-03-14 15:19 | Proc Note Endoscopy ---
Endoscopy Procedure Medical History: unchanged Mental Status: alert/oriented Heart/Lung Eval Prior to Sedation: within normal limits Candidate for Sedation? Yes Procedure Date: 03/14/18 Procedure Type: EGD w/biopsy Surveying Crew Rodman: MD English Deborah E. ASA Classification: III Indications: 1. Acute Blood Loss Anemia 2. Melena 3. Chronic Use Anti-Platelet Agents 4. Coagulaopathy Instrument: diagnostic gastroscope Meds Received: MAC Patient's Tolerance: good Complications: none Extent Reached: second part of duodenum Procedure: Note: Informed consent was obtained prior to procedure. Risks and benefits of procedure were discussed with patient. Potential complications discussed included perforation, bleeding, abdominal pain, and adverse reaction to medications. It was explained that iany or all of these complications could result in the need for extended hospitalization, emergency surgery, transfusion of packed red blood cells (with the risk of HIV or hepatitis virus), intubation with mechanical ventilation, and possible need for antibiotics. It was further explained that an existing tumor polyp or mucosal abnormality might not be identified at the time of the procedure thus resulting in a missed opportunity for early diagnosis and treatment of a gastrointestinal malignancy or disease with possible interval development of a gastrointestinal cancer or other disease with possible worsening of clinical condition in the interval between endoscopies. It was also discussed that complications are not limited to those listed above. Possible alternatives to endoscopic treatment or evaluation were discussed. All questions were answered. Continuous EKG and blood pressure monitors were attached. Supplemental oxygen was provided with O2 Sat monitoring. Patient was placed in the left lateral decubitus position. A surgical timeout was performed. All persons in the room were identified. All concerns were expressed and answered. A bite block was placed in the mouth and sedation was administered by anesthesia and titrated to comfort prior to starting the procedure. The Olympus upper endoscope was advanced under direct vision to the level of the third portion of the duodenum. Esophagus: The esophagus had a normal mucosal vascular pattern throughout its entirety. The GE junction was identified and was normal. The Z line was nondisplaced. There was a small sliding-type hiatal hernia. There is a small nodular area within the hiatal hernia sac that was biopsied for routine histopathology. Stomach: There was patchy erythema throughout the antrum and distal gastric body with scattered nodular areas and erosion. There was no active bleeding. Retroflexed view of the cardiofundic region revealed a normal mucosal and vascular pattern. There is a small sliding-type hiatal hernia. There were normal rugae and normal distensibility. The pylorus was patent and easily intubated. Biopsies were obtained from the antrum, angularis, gastric body and lesser curvature to rule out H. Pylori. Duodenum: The duodenum was fully examined from bulb down to the third portion. There was a normal mucosal vascular pattern throughout. With the endoscope in the forward-viewing position, it was slowly withdrawn and all areas were re-inspected and findings are as described previously. Patient tolerated the procedure well. EBL: Minimal Specimens Removed: 1. antrum, angularis, gastric body and lesser curvature to rule out H. Pylori. 2. Nodule within hiatal hernia sac, likely of little clinical significance Findings: 1. Nodular gastritis with erosions 2. Small sliding-type hiatal hernia 3. Small nodule within hiatal hernia sac, likely of little clinical significance Impression: 1. Nodular gastritis with erosions 2. Small sliding-type hiatal hernia 3. Small nodule within hiatal hernia sac, likely of little clinical significance In the setting of anticoagulation it is possible that patient's melenic stools were related to nodular gastritis with erosions. Recommendations: 1. Patient may have regular diet 2. Patient to avoid aspirin and NSAIDs 3. Patient may resume anticoagulation with antiplatelet therapy 4. Continue serial H&H but decreased frequency 5. Change IV PPI to Protonix 40 mg by mouth twice a day 6. Would recommend that patient have colonoscopy to complete workup, however this can be done as outpatient, if H&H remains stable.
--- NOTE | 2018-03-14 15:35 | Event Note ---
Event Note Event Note: Patient went to endoscopy for his evaluation of GI bleed. Upon going to the OR patient developed rapid atrial fibrillation and was given Lopressor. After Lopressor patient heart rate went down to 100s. Endoscopy was done without any complication. In view of close monitoring patient is being transferred to telemetry. Resident, patient support specialist, attending aware.
[2018-03-14 16:43] VITALS: BP 144/62
--- NOTE | 2018-03-14 17:09 | Patient Discharge Instructions ---
Discharge Instructions General Discharge Information You were seen/treated for: GI bleed, atrial fibrillation Watch for these problems: In case of nausea, vomiting, shortness of breath, chest pain, abdominal pain, bloody bowel movemen T score 2 the nearest emergency room. Special Instructions: Please follow-up with your primary care provider in 1 week. Follow-up with your dairy chemist within 1 weeks of discharge to schedule a colonoscopy. We have provided you with a referral. Follow-up with Dr. Orozco within 1 week of discharge. Take all medications as directed. Call your doctor or return to the ER if you get short of breath, have chest pain , or have rectal bleeding or a bloody bowel movement. Diet Continue normal diet: No Recommended Diet: Diabetic Activity Full Activity/No Limits: No Activity Self Limited: Yes Acute Coronary Syndrome Inclusion Criteria At DC or during hospital stay patient has or had the following: ACS DIAGNOSIS No Discharge Core Measures Meds if any: Prescribed or Continued at Discharge Meds if any: NOT Prescribed or Continued at Discharge Congestive Heart Failure Inclusion Criteria At DC or during hospital stay patient has or had the following: CHF DIAGNOSIS No Discharge Core Measures Meds if any: Prescribed or Continued at Discharge Meds if any: NOT Prescribed or Continued at Discharge Cerebrovascular accident Inclusion Criteria At DC or during hospital stay patient has or had the following: CVA/TIA Diagnosis No Discharge Core Measures Meds if any: Prescribed or Continued at Discharge Meds if any: NOT Prescribed or Continued at Discharge Venous thromboembolism Inclusion Criteria VTE Diagnosis No VTE Type NONE VTE Confirmed by (Test) NONE Discharge Core Measures - Per Current guidelines, there needs to be overlap - treatment for the first 5 days of Warfarin therapy. - If discharged on Warfarin prior to 5 days of - overlap therapy, the patient will need to be - assessed for post discharge needs including - *Post discharge parental anticoagulation - *Warfarin and/or parental anticoagulation education - *Follow up date to check INR post discharge At least 5 days overlap therapy as Inpatient No Meds if any: Prescribed or Continued at Discharge Note: Overlap Therapy is Warfarin and Anticoagulant Meds if any: NOT Prescribed or Continued at Discharge
[2018-03-14 17:43] LABS: ABSOLUTE BASOPHIL COUNT 0 /CUMM (0.0-0.2); ABSOLUTE EOSINOPHIL COUNT 0 /CUMM (0.0-0.7); ABSOLUTE GRANULOCYTE CT 7.6 /CUMM (1.4-6.5); ABSOLUTE LYMPH COUNT 0.9 /CUMM (1.2-3.4); ABSOLUTE MONOCYTE COUNT 0.8 /CUMM (0.10-0.60); BASOPHIL % 0.2 % (0.0-2.0); EOSINOPHIL % 0.1 % (0-5); GRANULOCYTE % 82.1 % (42.2-75.2); HEMATOCRIT 25.5 % (42-52); MEAN CORPUSCULAR HGB 32.3 PG (27.0-31.0); MEAN CORPUSCULAR HGB CONC 32.8 G/DL (33.0-37.0); MEAN CORPUSCULAR VOLUME 98.2 FL (80.0-94.0); MEAN PLATELET VOLUME 9.6 FL (7.4-10.4); PLATELET COUNT 210 /CUMM (130-400); RBC DISTRIBUTION WIDTH 17.9 % (11.5-14.5); WHITE BLOOD CELL COUNT 9.3 /CUMM (4.8-10.8)
--- NOTE | 2018-03-14 18:54 | Cons- Cardiology ---
General Information and HPI Consulting Request Date of Consult: 03/14/18 Requested By: Deniz MAYEN,Gloria Reason for Consult: Gastrointestinal bleeding on new oral anticoagulant. Source of Information: patient, old records Exam Limitations: no limitations History of Present Illness: Mr. Woody Phelps is a 77-year-old male with a history of former tobacco use, mild COPD, hypertension, dyslipidemia, diabetes mellitus, moderate to severe MR and TR, mild LV dysfunction, coronary artery disease (angina pectoris prompted stress testing that was positive and led to cardiac catheterization 10/1996 with PCI/BMS to proximal LAD stenosis; recurrent angina pectoris with positive stress test led to repeat cardiac cath 03/1997 where high -grade stenosis at prior stent site was found led to successful angioplasty; unstable angina pectoris and discovery of a long critical proximal LAD stenosis led to CABG 1 with GRACE to LAD on 07/14/1997), permanent atrial fibrillation on factor Xa inhibitor Eliquis (apixaban) who presented to the ED on the recommendation of his primary care physician (Darin Andres MD) for a markedly low hemoglobin/hematocrit and suspected GI bleeding. An EGD was planned, but prior to this being performed the patient went into atrial fibrillation with rapid ventricular response that responded to IV metoprolol. He then underwent an EGD 03/14/2018) that revealed nodular gastritis with erosions, small sliding type hiatal hernia, and a small nodule within a hiatal hernia sac that was not felt to be of significance. Allergies/Medications Allergies: Coded Allergies: NO KNOWN ALLERGIES (12/05/12) Review of Systems Review of Systems: A 14 point system review was obtained and was noncontributory, other than as above. Past History Travel History Traveled to [place] past 21 day No Medical History Blood Transfusion Hx: No Neurological: NONE EENT: NONE Cardiovascular: AFIB, hypertension, BYPASS 1998 STENT Respiratory: NONE Gastrointestinal: POLYPS DIVERTICULOSIS Hepatic: NONE Renal: BPH? 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 Ambulation: independent IADLs Independent: shopping, housework, finances, food prep, telephone, transportation , medication admin. Exam & Diagnostic Data Vital Signs and I&O Vital Signs Date Time Temp Pulse Resp B/P B/P Pulse O2 O2 Flow FiO2 Mean Ox Delivery Rate 03/14 1643 97.9 114 20 144/62 95 03/14 1430 97.4 72 18 110/72 97 Nasal 2.0L Cannula 03/14 0800 Nasal 2.0L Cannula 03/14 0620 98.6 85 20 126/68 93 Room Air 03/14 0054 97.8 64 20 136/58 100 Room Air 03/13 2226 98.1 84 22 106/57 98 Room Air 03/13 2127 97.0 113 18 115/68 99 Room Air Intake & Output 03/14 1600 03/14 0800 03/14 0000 03/13 1600 03/13 0800 03/13 0000 Intake Total 800 860 0 Output Total 700 0 Balance 100 860 0 Intake, IV 800 Intake, Oral 800 60 0 Output, Urine 700 0 Patient 170 lb 167 lb Weight Weight Bed scale Reported by Patient Measurement Method Physical Exam: Well-developed, overweight elderly male who appears pale and in no acute distress. Vital signs: See above. HEENT: Normocephalic, atraumatic, EOMI, slightly dry mucous membranes. Neck: No JVD, no bruits. Lungs: Clear to auscultation bilaterally. Heart: S1, S2 with grade 2/6 systolic murmur. Abdomen: Soft, nontender, positive bowel sounds. Extremities: No edema. Labs/Isaias Results: Laboratory Tests 03/14 03/14 1730 1122 Chemistry Sodium (137 - 145 mmol/L) 133 L Potassium (3.5 - 5.1 mmol/L) 3.6 Chloride (98 - 107 mmol/L) 102 Carbon Dioxide (22 - 30 mmol/L) 19 L Anion Gap (5 - 16) 13 BUN (9 - 20 mg/dL) 19 Creatinine (0.7 - 1.2 mg/dL) 0.9 Estimated GFR (>60 ml/min) > 60 BUN/Creatinine Ratio (7 - 25 %) 21.1 Troponin I (<0.11 ng/ml) 0.03 Coagulation PT (9.4 - 12.5 SEC) 17.1 H INR (0.90 - 1.17) 1.56 H Hematology CBC w Diff NO MAN DIFF REQ WBC (4.8 - 10.8 /CUMM) 9.3 RBC (4.70 - 6.10 /CUMM) 2.60 L Hgb (14.0 - 18.0 G/DL) 8.4 L Hct (42 - 52 %) 25.5 L MCV (80.0 - 94.0 FL) 98.2 H MCH (27.0 - 31.0 PG) 32.3 H MCHC (33.0 - 37.0 G/DL) 32.8 L RDW (11.5 - 14.5 %) 17.9 H Plt Count (130 - 400 /CUMM) 210 MPV (7.4 - 10.4 FL) 9.6 Gran % (42.2 - 75.2 %) 82.1 H Lymphocytes % (20.5 - 51.1 %) 9.4 L Monocytes % (1.7 - 9.3 %) 8.2 Eosinophils % (0 - 5 %) 0.1 Basophils % (0.0 - 2.0 %) 0.2 Absolute Granulocytes (1.4 - 6.5 /CUMM) 7.6 H Absolute Lymphocytes (1.2 - 3.4 /CUMM) 0.9 L Absolute Monocytes (0.10 - 0.60 /CUMM) 0.8 H Absolute Eosinophils (0.0 - 0.7 /CUMM) 0 Absolute Basophils (0.0 - 0.2 /CUMM) 0 03/14 03/14 0941 0410 Chemistry Sodium (137 - 145 mmol/L) 128 L Potassium (3.5 - 5.1 mmol/L) 4.9 Chloride (98 - 107 mmol/L) 95 L Carbon Dioxide (22 - 30 mmol/L) 22 Anion Gap (5 - 16) 12 BUN (9 - 20 mg/dL) 26 H Creatinine (0.7 - 1.2 mg/dL) 1.3 H Estimated GFR (>60 ml/min) 54 L BUN/Creatinine Ratio (7 - 25 %) 20.0 Iron (49 - 181 ug/dL) 25 L TIBC (261 - 462 ug/dL) 425 Ferritin (17.9 - 464 ng/mL) 14.1 L Troponin I (<0.11 ng/ml) 0.01 TSH (0.270 - 4.200 uIU/mL) 4.260 H Cortisol AM Sample (4.46 - 22.7 ug/dL) 9.3 Hematology CBC w Diff NO MAN DIFF REQ NO MAN DIFF REQ WBC (4.8 - 10.8 /CUMM) 8.6 7.1 RBC (4.70 - 6.10 /CUMM) 2.78 L 2.00 L Hgb (14.0 - 18.0 G/DL) 9.0 L 6.6 *L Hct (42 - 52 %) 27.1 L 19.9 *L MCV (80.0 - 94.0 FL) 97.5 H 99.2 H MCH (27.0 - 31.0 PG) 32.3 H 32.9 H MCHC (33.0 - 37.0 G/DL) 33.1 33.2 RDW (11.5 - 14.5 %) 17.3 H 17.5 H Plt Count (130 - 400 /CUMM) 324 307 MPV (7.4 - 10.4 FL) 9.1 8.7 Gran % (42.2 - 75.2 %) 73.5 69.8 Lymphocytes % (20.5 - 51.1 %) 12.4 L 17.2 L Monocytes % (1.7 - 9.3 %) 12.3 H 12.1 H Eosinophils % (0 - 5 %) 0.3 0.5 Basophils % (0.0 - 2.0 %) 1.5 0.4 Absolute Granulocytes (1.4 - 6.5 /CUMM) 6.3 5.0 Absolute Lymphocytes (1.2 - 3.4 /CUMM) 1.1 L 1.2 Absolute Monocytes (0.10 - 0.60 /CUMM) 1.1 H 0.9 H Absolute Eosinophils (0.0 - 0.7 /CUMM) 0 0 Absolute Basophils (0.0 - 0.2 /CUMM) 0.1 0 03/14 03/14 0040 0040 Urines Urinalysis LIGHT H Urine Color (YEL,AMB,STR) YEL Urine Clarity (CLEAR) HAZY H Urine pH (5.0 - 8.0) 6.0 Ur Specific [place] (1.001 - 1.035) 1.020 Urine Protein (NEG,<30 MG/DL) TRACE H Urine Ketones (NEG) NEG Urine Nitrite (NEG) NEG Urine Bilirubin (NEG) NEG Urine Urobilinogen (0.1 - 1.0 EU/dl) 1.0 Ur Leukocyte Esterase (NEG) NEG Ur Microscopic SEDIMENT EXAMINED Urine RBC (0 - 5 /HPF) 1-3 Urine WBC (0 - 2 /HPF) 3-5 H Ur Epithelial Cells (NONE,FEW) FEW Urine Bacteria (NEG/NONE) RARE H Urine Mucus (FEW,NONE) FEW Urine Hemoglobin (NEG) NEG Urine Osmolality (300 - 1000 MOSM/KG) Urine Glucose (N MG/DL) NEG 03/135 2130 Chemistry Sodium (137 - 145 mmol/L) 125 L Potassium (3.5 - 5.1 mmol/L) 4.5 Chloride (98 - 107 mmol/L) 92 L Carbon Dioxide (22 - 30 mmol/L) 21 L Anion Gap (5 - 16) 13 BUN (9 - 20 mg/dL) 25 H Creatinine (0.7 - 1.2 mg/dL) 1.4 H Estimated GFR (>60 ml/min) 49 L BUN/Creatinine Ratio (7 - 25 %) 17.9 Glucose (65 - 99 mg/dL) 107 H Serum Osmolality (285 - 295 MOSM/KG) 273 L Calcium (8.4 - 10.2 mg/dL) 8.7 Total Bilirubin (0.2 - 1.3 mg/dL) 0.7 AST (17 - 59 U/L) 29 ALT (21 - 72 U/L) 30 Alkaline Phosphatase (< 127 U/L) 80 Troponin I (<0.11 ng/ml) < 0.01 Cancelled Ovy-M-Bqjvszafjvi Pept (<125 pg/mL) 2610 H Total Protein (6.3 - 8.2 g/dL) 6.6 Albumin (3.5 - 5.0 g/dL) 3.8 Globulin (1.9 - 4.2 gm/dL) 2.8 Albumin/Globulin Ratio (1.1 - 2.2 %) 1.4 Coagulation PT (9.4 - 12.5 SEC) 20.0 H INR (0.90 - 1.17) 1.82 H APTT (25 - 37 SEC) 32 Hematology CBC w Diff NO MAN DIFF REQ WBC (4.8 - 10.8 /CUMM) 9.1 RBC (4.70 - 6.10 /CUMM) 1.87 L Hgb (14.0 - 18.0 G/DL) 6.2 *L Hct (42 - 52 %) 18.8 *L MCV (80.0 - 94.0 FL) 100.5 H MCH (27.0 - 31.0 PG) 33.3 H MCHC (33.0 - 37.0 G/DL) 33.1 RDW (11.5 - 14.5 %) 18.0 H Plt Count (130 - 400 /CUMM) 355 MPV (7.4 - 10.4 FL) 8.6 Gran % (42.2 - 75.2 %) 70.2 Lymphocytes % (20.5 - 51.1 %) 15.0 L Monocytes % (1.7 - 9.3 %) 14.1 H Eosinophils % (0 - 5 %) 0.5 Basophils % (0.0 - 2.0 %) 0.2 Absolute Granulocytes (1.4 - 6.5 /CUMM) 6.4 Absolute Lymphocytes (1.2 - 3.4 /CUMM) 1.4 Absolute Monocytes (0.10 - 0.60 /CUMM) 1.3 H Absolute Eosinophils (0.0 - 0.7 /CUMM) 0 Absolute Basophils (0.0 - 0.2 /CUMM) 0 Diagnostic Data EKG Results 03/14/2018: Atrial fibrillation with a moderate mean ventricular response, low frontal lead voltage, and ST-T wave abnormalities consistent with possible ischemia. Less ST -T wave abnormalities when compared to tracing from 03/13/2018. CXR Results 03/14/2018: No acute pulmonary findings. Mildly enlarged cardiac silhouette. Assessment/Plan Assessment/Plan [id number] w/ hx of former tobacco use, mild COPD, HTN, HLD, DM, moderate to severe MR & TR, mild LV dysfunction, CAD (angina pectoris prompted stress testing that was positive and led to cardiac catheterization 10/1996 w/ PCI/BMS to proximal LAD stenosis; recurrent angina pectoris w/ positive stress test led to repeat cardiac cath 03/1997 where high-grade stenosis at prior stent site was found & led to successful angioplasty; unstable angina pectoris and discovery of a long critical proximal LAD stenosis that led to CABG 1 w/ GRACE to LAD on ), chronic AF on Eliquis (apixaban) who presented to the ED on the recommendation of his PCP for a markedly low hemoglobin/hematocrit & suspected GI bleed with EGD performed 03/14/2018 that revealed nodular gastritis with erosions felt to be the likely source of the patient's anemia. Fortunately, the patient has been hemodynamically stable, but he does have a high [id number] Score and should be restarted on full anticoagulation when deemed appropriate by gastroenterology. Recommendations: * Continue on telemetry, given earlier atrial fibrillation with rapid ventricular response rates requiring, ST segment depression on his ECG, etc. * No evidence of myocardial necrosis by troponins. Follow-up ECG in a.m. * Echocardiogram to reassess LV function, RV function, degree of valvular regurgitation, PA pressure, etc. * Hold aspirin and apixaban for the short-term and restart apixaban when okay with gastroenterology. * Continue other outpatient medications: metoprolol, simvastatin, ramipril, amlodipine, etc. * Strict inputs/outputs and daily weights. * Maintain hemoglobin above 8.0 g/dl, given his history of CAD. * Replete potassium and aim to maintain between 4.0-4.5 mEq/L. * Check magnesium and maintain at or above 2.0 mg/dl. * Note TSH, but would not increase thyroid replacement at this time. * Check glycosylated hemoglobin A1c. Further recommendations will follow, Thank you. Consult Acknowledgment - Thank you for your consult request.
[2018-03-14 23:52] VITALS: BP 112/72
[2018-03-15 06:53] VITALS: BP 108/56
--- NOTE | 2018-03-15 07:24 | PN- Att Addend ---
Attending Addendum Attending Brief Note Patient seen and examined. No issues overnight reported by nursing staff. Remains afebrile and hemodynamically stable. Resting comfortably and not in any acute distress. Denies shortness of breath or palpitations. Denies cough. Denies abdominal pain. Reports having bowel movements earlier this morning, he reports it as dark in color with no obvious blood. On telemetry monitoring he remains in atrial fibrillation with occasional rapid ventricular response. He did have heart rate as high as 160/90. Report of EGD done yesterday noted. Vital Signs Date Time Temp Pulse Resp B/P B/P Pulse O2 O2 Flow FiO2 Mean Ox Delivery Rate 03/15 0653 98.7 106 20 108/56 94 Nasal Cannula 03/15 0000 Nasal 1.0L Cannula 03/14 2352 98.3 117 20 112/72 97 Nasal Cannula 03/14 2210 116 112/72 03/14 2210 117 112/72 03/14 2210 117 112/72 03/14 1643 97.9 114 20 144/62 95 03/14 1600 Nasal 1.5L Cannula 03/14 1430 97.4 72 18 110/72 97 Nasal 2.0L Cannula 03/14 0800 Nasal 2.0L Cannula General appearance: Well-developed and not in any acute distress. HEENT: Anicteric, no pallor, pupils equal and reactive. Neck: Supple with no jugular venous distention. Heart: S1-S2 IRregular with no audible murmur. Lungs: Adequate and symmetric air entry bilaterally with no added sounds. Abdomen: Nondistended with normal bowel sounds. Soft, nontender with no palpable masses. Extremities: No pedal edema. No cyanosis. Skin: Intact Laboratory Tests 03/15/18 0651: Sodium Pending, Potassium Pending, Chloride Pending, Carbon Dioxide Pending, Anion Gap Pending, BUN Pending, Creatinine Pending, BUN/Creatinine Ratio Pending , Magnesium Pending, CBC w Diff Pending, WBC Pending, RBC Pending, Hgb Pending, Hct Pending, MCV Pending, MCH Pending, MCHC Pending, RDW Pending, Plt Count Pending, MPV Pending 03/14/18 1730: Anion Gap 13, Estimated GFR > 60, BUN/Creatinine Ratio 21.1, Hemoglobin A1c Pending, Magnesium 1.1 L, Troponin I 0.03, CBC w Diff NO MAN DIFF REQ, RBC 2.60 L, MCV 98.2 H, MCH 32.3 H, MCHC 32.8 L, RDW 17.9 H, MPV 9.6, Gran % 82.1 H , Lymphocytes % 9.4 L, Monocytes % 8.2, Eosinophils % 0.1, Basophils % 0.2, Absolute Granulocytes 7.6 H, Absolute Lymphocytes 0.9 L, Absolute Monocytes 0.8 H, Absolute Eosinophils 0, Absolute Basophils 0 03/14/18 1200: Troponin I Cancelled 03/14/18 1122: PT 17.1 H, INR 1.56 H 03/14/18 0941: CBC w Diff NO MAN DIFF REQ, RBC 2.78 L, MCV 97.5 H, MCH 32.3 H, MCHC 33.1, RDW 17.3 H, MPV 9.1, Gran % 73.5, Lymphocytes % 12.4 L, Monocytes % 12.3 H, Eosinophils % 0.3, Basophils % 1.5, Absolute Granulocytes 6.3, Absolute Lymphocytes 1.1 L, Absolute Monocytes 1.1 H, Absolute Eosinophils 0, Absolute Basophils 0.1 Recommendations: 1. Acute blood loss anemia secondary to gastrointestinal bleeding. 2. Atrial fibrillation on anticoagulation 3. Coronary artery disease 4. Abnormal TSH. Plan: -Bleeding is presumed to be secondary to erosive gastritis noted on EGD. He did receive total of 2 units of blood yesterday. We will continue to monitor H&H. If hemoglobin levels are stable tomorrow morning he may continue anticoagulant therapy. -Please reconcile patient's home medication list to determine what medications he was on at home. He is currently receiving metoprolol 100 mg daily for rate control. -Repeat TSH level and add free T3 and T4. Current TSH level is is suggestive of hypothyroidism.
[2018-03-15 08:28] LABS: ABSOLUTE BASOPHIL COUNT 0 /CUMM (0.0-0.2); ABSOLUTE EOSINOPHIL COUNT 0 /CUMM (0.0-0.7); ABSOLUTE GRANULOCYTE CT 7.9 /CUMM (1.4-6.5); ABSOLUTE LYMPH COUNT 0.6 /CUMM (1.2-3.4); ABSOLUTE MONOCYTE COUNT 0.9 /CUMM (0.10-0.60); BASOPHIL % 0.1 % (0.0-2.0); EOSINOPHIL % 0.3 % (0-5); GRANULOCYTE % 84.3 % (42.2-75.2); HEMATOCRIT 24.9 % (42-52); MEAN CORPUSCULAR HGB 32.7 PG (27.0-31.0); MEAN CORPUSCULAR HGB CONC 33.5 G/DL (33.0-37.0); MEAN CORPUSCULAR VOLUME 97.7 FL (80.0-94.0); MEAN PLATELET VOLUME 8.9 FL (7.4-10.4); PLATELET COUNT 301 /CUMM (130-400); RBC DISTRIBUTION WIDTH 17.6 % (11.5-14.5); RED BLOOD CELL CT 2.55 /CUMM (4.70-6.10); WHITE BLOOD CELL COUNT 9.4 /CUMM (4.8-10.8)
[2018-03-15] MEDS ORDERED: ELIQUIS5 M1 PO (08:32)
[2018-03-15] MEDS ORDERED: SIMVASTATIN20 M2 PO (08:32)
[2018-03-15] MEDS ORDERED: POTASSIUM CHLO10 ME3 PO (08:32)
[2018-03-15] MEDS ORDERED: RAMIPRIL10 M1 PO (08:33)
[2018-03-15] MEDS ORDERED: NORVASC5 M1 PO (08:33)
[2018-03-15] MEDS ORDERED: METOPROLOL SUC100 M2 PO (08:33)
[2018-03-15] MEDS ORDERED: FUROSEMIDE20 M1 PO (08:34)
[2018-03-15] MEDS ORDERED: METFORMIN HCL500 M4 PO (08:35)
[2018-03-15] MEDS ORDERED: ASPIRIN EC81 M1 PO (08:36)
--- NOTE | 2018-03-15 08:44 | PN- Housestaff ---
Subjective Follow-up For: upper GI bleed Tele-Events Since Last Visit: afib 88-121 with a rise to 160's at 0456hrs Subjective: patient says he feels good. he is on 2L, no SOB, no abd pain. Had one BM last night that was very dark brown. Notes he had bad lower extremity edema that has largely resolved today. Review of Systems Constitutional: Reports: no symptoms. Objective Last 24 Hrs of Vital Signs/I&O Vital Signs Date Time Temp Pulse Resp B/P B/P Pulse O2 O2 Flow FiO2 Mean Ox Delivery Rate 03/15 1442 99.0 114 20 112/62 93 Room Air 03/15 0820 100 108/58 03/15 0820 100 108/58 03/15 0820 100 108/58 03/15 0800 97 Nasal 1.0L Cannula 03/15 0653 98.7 106 20 108/56 94 Nasal Cannula 03/15 0000 Nasal 1.0L Cannula 03/14 2352 98.3 117 20 112/72 97 Nasal Cannula Intake & Output 03/15 1600 03/15 0800 03/15 0000 Intake Total 370 200 450 Output Total Balance 370 200 450 Intake, IV 20 200 Intake, Oral 350 450 Number 1 Bowel Movements Physical Exam General Appearance: Alert, Oriented X3, Cooperative, No Acute Distress Sepsis Skin Exam (color): Normal for Ethnicity HEENT: Atraumatic, EOMI, Mucous Membr. moist/pink Cardiovascular: Normal S1, Normal S2, No Murmurs Lungs: Clear to Auscultation, Normal Air Movement Abdomen: Normal Bowel Sounds, Soft, No Tenderness Current Medications: Current Medications Sig/Ceasr Start time Last Medication Dose Route Stop Time Status Admin Acetaminophen 325 MG Q6 PRN 03/13 2330 AC PO Amlodipine Besylate 5 MG DAILY 03/14 1930 AC 03/15 PO 0820 Apixaban 5 MG BID 03/14 2100 AC 03/15 PO 2104 Atorvastatin Calcium 20 MG 1700 03/14 1700 AC 03/15 PO 1707 Insulin Aspart 0 TIDAC 03/14 0800 AC 03/14 SC 1754 Lisinopril 10 MG DAILY 03/14 1930 AC 03/15 PO 0820 Magnesium Sulfate 1 GM .STK-MED ONE 03/15 0253 DC IV 03/15 0254 Magnesium Sulfate 1 GM .STK-MED ONE 03/15 0045 DC IV 03/15 0046 Magnesium Sulfate 1 GM Q2H 03/14 2345 DC 03/15 Dextrose/Water 100 ML IV 03/15 0344 0253 Metoprolol Succinate 100 MG DAILY 03/14 1927 AC 03/15 PO 0820 Omeprazole 40 MG BID 03/14 2100 AC 03/15 PO 2104 Last 24 Hrs of Lab/Isaias Results Last 24 Hrs of Labs/Mics: Laboratory Tests 03/15/18 0651: Anion Gap 12, Estimated GFR > 60, BUN/Creatinine Ratio 18.9, Magnesium 1.8, CBC w Diff NO MAN DIFF REQ, RBC 2.55 L, MCV 97.7 H, MCH 32.7 H, MCHC 33.5, RDW 17.6 H, MPV 8.9, Gran % 84.3 H, Lymphocytes % 6.2 L, Monocytes % 9.1, Eosinophils % 0.3, Basophils % 0.1, Absolute Granulocytes 7.9 H, Absolute Lymphocytes 0.6 L, Absolute Monocytes 0.9 H, Absolute Eosinophils 0, Absolute Basophils 0 Assessment/Plan Assessment: Patient is a 77-year-old male with past medical history of A. fib on Eliquis, hypertension, diabetes, CABG with stents who was sent in to the ED by Dr. Andres for low H&H secondary to GI bleed. Assessment and plan 1. Blood loss anemia secondary to GI bleed 2. Hyponatremia 3. Acute kidney injury * Anemia-patient got 2 units of transfusion. Post transmission hemoglobin 9, now 8.4. We'll watch for further bleeding. Daily CBC. Gastroenterology on board. Patient had his diet advanced sp endoscopy. Anticoagulant Eliquis restarted. Avoid NSAIDs. * Hyponatremia-can be secondary due to dehydration/Lasix. Today morning sodium improved to 134. Daily BEP. * Afib - patient had episode of 160's HR. Metoprolol 100mg daily for rate control. * Acute kidney injury. Can be secondary due to Lasix. Lasix held upon admission in view of further worsening kidney numbers. * Replete Mag as needed to keep around 2. * Follow up HbA1c * Follow up echo * Repeat TFTs * Consider addition of iron to meds * Continue Protonix, Atorvastatin, insulin. Code-full code Diet-diabetic diet DVT prophylaxis-Alps Problem List: 1. GI bleed Pain Ratin Pain Location: none Pain Goal: Remain pain free Pain Plan: prn Tomorrow's Labs & Rationales: cbc bep
--- NOTE | 2018-03-15 13:17 | PN- Gastroenterology ---
Assessment/Plan GI Assessment/Recommendations: ASSESSMENT: 1. Acute Blood Loss Anemia 2. Atrial Fibrillatin -- not rate Controlled 3. Elevated TSH 4. Gastritis with Erosions I wrote in my procedure note that I did not believe his findings adequately account for his drop in H/H. I have discussed with Mr. Phelps that I believe he needs a colonoscopy which she has not had for some time. I believe that Mr. Phelps is stable enough for outpatient workup. He is a patient of Dr. Cruz Thompson is and at discharge should have a follow-up with Dr. Thompson for colonoscopy to complete workup of acute blood loss anemia. Patient should also be discharged on Protonix 40 mg by mouth every morning. RECOMMENDATIONS: 1. Outpatient Colonoscopy to complete workup 2. Serial H/H 3. Echocardiogram to evaluate atrial fibrillation which is not adequately rate controlled 4. Discharge to home on Protonix 40 mg PO q am. 5. GI will sign off for now. However, if it is anticipated that Mr. Phelps will remain as an inpatient over the weekend colonoscopy can be performed either on Saturday or Saturday if he is prepped. Subjective Subjective: Patient doing well. No nausea, vomiting, or abdominal pain. No fever, or shaking chills. No melena nor bright red blood per rectum. Reports that he is going to have an echocardiogram for evaluation of his atrial fibrillation with heart rates as high as 160. I have reviewed his attending physician notes. Objective Vital Signs and I&Os Vital Signs Date Time Temp Pulse Resp B/P B/P Pulse O2 O2 Flow FiO2 Mean Ox Delivery Rate 03/15 0820 100 108/58 03/15 0820 100 108/58 03/15 0820 100 108/58 03/15 0800 97 Nasal 1.0L Cannula 03/15 0653 98.7 106 20 108/56 94 Nasal Cannula 03/15 0000 Nasal 1.0L Cannula 03/14 2352 98.3 117 20 112/72 97 Nasal Cannula 03/14 2210 116 112/72 03/14 2210 117 112/72 03/14 221 117 112/72 03/14 1643 97.9 114 20 144/62 95 03/14 1600 Nasal 1.5L Cannula 03/14 1430 97.4 72 18 110/72 97 Nasal 2.0L Cannula Intake & Output 03/15 1600 03/15 0400 03/14 1600 03/14 0400 03/13 1600 03/13 0400 Intake Total 431 514 8297 0 Output Total 700 0 Balance 200 450 960 0 Intake, IV 200 800 Intake, Oral 450 860 0 Number 1 Bowel Movements Output, Urine 700 0 Patient 170 lb 170 lb Weight Weight Bed scale Bed scale Measurement Method Physical Exam General Appearance: well developed/nourished, no apparent distress Respiratory: lungs clear Cardiovascular: tachycardia, irregularly irregular Abdomen: normal bowel sounds, soft, non-tender Neurologic/Psychiatric: awake, alert, oriented x 3 Current Medications: Current Medications Sig/Cesar Start time Last Medication Dose Route Stop Time Status Admin Acetaminophen 325 MG Q6 PRN 03/13 2330 AC PO Amlodipine Besylate 5 MG DAILY 03/14 1930 AC 03/15 PO 0820 Apixaban 5 MG BID 03/14 2100 AC 03/15 PO 0820 Atorvastatin Calcium 20 MG 1700 03/14 1700 AC 03/14 PO 1744 Insulin Aspart 0 TIDAC 03/14 0800 AC 03/14 SC 1754 Lisinopril 10 MG DAILY 03/14 1930 03/15 PO 0820 Magnesium Sulfate 1 GM .STK-MED ONE 03/15 0253 DC IV 03/15 0254 Magnesium Sulfate 1 GM .STK-MED ONE 03/15 0045 DC IV 03/15 0046 Magnesium Sulfate 1 GM Q2H 03/14 2345 [place] 03/15 Dextrose/Water 100 ML IV 03/15 0344 0253 Metoprolol Succinate 100 MG DAILY 03/14 1927 AC 03/15 PO 0820 Omeprazole 40 MG BID 03/14 2100 03/15 PO 0820 Pantoprazole Sodium 40 MG BID 03/14 0900 [place] 03/14 IV 0825 Patient Medication 1 ED ONE ONE 03/14 1545 DC Teaching ED 03/14 1546 Potassium Chloride 40 MEQ ONCE ONE 03/14 193 DC 03/14 PO 03/14 193 2212 Results Pertinent Lab Results: Laboratory Tests 03/15 03/14 0651 1730 Chemistry Sodium (137 - 145 mmol/L) 134 L 133 L Potassium (3.5 - 5.1 mmol/L) 4.7 3.6 Chloride (98 - 107 mmol/L) 99 102 Carbon Dioxide (22 - 30 mmol/L) 23 19 L Anion Gap (5 - 16) 12 13 BUN (9 - 20 mg/dL) 17 19 Creatinine (0.7 - 1.2 mg/dL) 0.9 0.9 Estimated GFR (>60 ml/min) > 60 > 60 BUN/Creatinine Ratio (7 - 25 %) 18.9 21.1 Hemoglobin A1c (4.2 - 5.8 %) Pending Magnesium (1.6 - 2.3 mg/dL) 1.8 1.1 L Troponin I (<0.11 ng/ml) 0.03 Hematology CBC w Diff NO MAN DIFF REQ NO MAN DIFF REQ WBC (4.8 - 10.8 /CUMM) 9.4 9.3 RBC (4.70 - 6.10 /CUMM) 2.55 L 2.60 L Hgb (14.0 - 18.0 G/DL) 8.4 L 8.4 L Hct (42 - 52 %) 24.9 L 25.5 L MCV (80.0 - 94.0 FL) 97.7 H 98.2 H MCH (27.0 - 31.0 PG) 32.7 H 32.3 H MCHC (33.0 - 37.0 G/DL) 33.5 32.8 L RDW (11.5 - 14.5 %) 17.6 H 17.9 H Plt Count (130 - 400 /CUMM) 301 210 MPV (7.4 - 10.4 FL) 8.9 9.6 Gran % (42.2 - 75.2 %) 84.3 H 82.1 H Lymphocytes % (20.5 - 51.1 %) 6.2 L 9.4 L Monocytes % (1.7 - 9.3 %) 9.1 8.2 Eosinophils % (0 - 5 %) 0.3 0.1 Basophils % (0.0 - 2.0 %) 0.1 0.2 Absolute Granulocytes (1.4 - 6.5 /CUMM) 7.9 H 7.6 H Absolute Lymphocytes (1.2 - 3.4 /CUMM) 0.6 L 0.9 L Absolute Monocytes (0.10 - 0.60 /CUMM) 0.9 H 0.8 H Absolute Eosinophils (0.0 - 0.7 /CUMM) 0 0 Absolute Basophils (0.0 - 0.2 /CUMM) 0 0 03/14 03/14 03/14 1200 1122 0941 Chemistry Troponin I Cancelled Coagulation PT (9.4 - 12.5 SEC) 17.1 H INR (0.90 - 1.17) 1.56 H Hematology CBC w Diff NO MAN DIFF REQ WBC (4.8 - 10.8 /CUMM) 8.6 RBC (4.70 - 6.10 /CUMM) 2.78 L Hgb (14.0 - 18.0 G/DL) 9.0 L Hct (42 - 52 %) 27.1 L MCV (80.0 - 94.0 FL) 97.5 H MCH (27.0 - 31.0 PG) 32.3 H MCHC (33.0 - 37.0 G/DL) 33.1 RDW (11.5 - 14.5 %) 17.3 H Plt Count (130 - 400 /CUMM) 324 MPV (7.4 - 10.4 FL) 9.1 Gran % (42.2 - 75.2 %) 73.5 Lymphocytes % (20.5 - 51.1 %) 12.4 L Monocytes % (1.7 - 9.3 %) 12.3 H Eosinophils % (0 - 5 %) 0.3 Basophils % (0.0 - 2.0 %) 1.5 Absolute Granulocytes (1.4 - 6.5 /CUMM) 6.3 Absolute Lymphocytes (1.2 - 3.4 /CUMM) 1.1 L Absolute Monocytes (0.10 - 0.60 /CUMM) 1.1 H Absolute Eosinophils (0.0 - 0.7 /CUMM) 0 Absolute Basophils (0.0 - 0.2 /CUMM) 0.1 03/14 03/14 0410 0040 Chemistry Sodium (137 - 145 mmol/L) 128 L Potassium (3.5 - 5.1 mmol/L) 4.9 Chloride (98 - 107 mmol/L) 95 L Carbon Dioxide (22 - 30 mmol/L) 22 Anion Gap (5 - 16) 12 BUN (9 - 20 mg/dL) 26 H Creatinine (0.7 - 1.2 mg/dL) 1.3 H Estimated GFR (>60 ml/min) 54 L BUN/Creatinine Ratio (7 - 25 %) 20.0 Iron (49 - 181 ug/dL) 25 L TIBC (261 - 462 ug/dL) 425 Ferritin (17.9 - 464 ng/mL) 14.1 L Troponin I (<0.11 ng/ml) 0.01 TSH (0.270 - 4.200 uIU/mL) 4.260 H Cortisol AM Sample (4.46 - 22.7 ug/dL) 9.3 Hematology CBC w Diff NO MAN DIFF REQ WBC (4.8 - 10.8 /CUMM) 7.1 RBC (4.70 - 6.10 /CUMM) 2.00 L Hgb (14.0 - 18.0 G/DL) 6.6 *L Hct (42 - 52 %) 19.9 *L MCV (80.0 - 94.0 FL) 99.2 H MCH (27.0 - 31.0 PG) 32.9 H MCHC (33.0 - 37.0 G/DL) 33.2 RDW (11.5 - 14.5 %) 17.5 H Plt Count (130 - 400 /CUMM) 307 MPV (7.4 - 10.4 FL) 8.7 Gran % (42.2 - 75.2 %) 69.8 Lymphocytes % (20.5 - 51.1 %) 17.2 L Monocytes % (1.7 - 9.3 %) 12.1 H Eosinophils % (0 - 5 %) 0.5 Basophils % (0.0 - 2.0 %) 0.4 Absolute Granulocytes (1.4 - 6.5 /CUMM) 5.0 Absolute Lymphocytes (1.2 - 3.4 /CUMM) 1.2 Absolute Monocytes (0.10 - 0.60 /CUMM) 0.9 H Absolute Eosinophils (0.0 - 0.7 /CUMM) 0 Absolute Basophils (0.0 - 0.2 /CUMM) 0 Urines Urine Osmolality (300 - 1000 MOSM/KG) 03/14 03/13 0040 2145 Chemistry Sodium (137 - 145 mmol/L) 125 L Potassium (3.5 - 5.1 mmol/L) 4.5 Chloride (98 - 107 mmol/L) 92 L Carbon Dioxide (22 - 30 mmol/L) 21 L Anion Gap (5 - 16) 13 BUN (9 - 20 mg/dL) 25 H Creatinine (0.7 - 1.2 mg/dL) 1.4 H Estimated GFR (>60 ml/min) 49 L BUN/Creatinine Ratio (7 - 25 %) 17.9 Glucose (65 - 99 mg/dL) 107 H Serum Osmolality (285 - 295 MOSM/KG) 273 L Calcium (8.4 - 10.2 mg/dL) 8.7 Total Bilirubin (0.2 - 1.3 mg/dL) 0.7 AST (17 - 59 U/L) 29 ALT (21 - 72 U/L) 30 Alkaline Phosphatase (< 127 U/L) 80 Troponin I (<0.11 ng/ml) < 0.01 Iyt-O-Aexuxglaqxw Pept (<125 pg/mL) 2610 H Total Protein (6.3 - 8.2 g/dL) 6.6 Albumin (3.5 - 5.0 g/dL) 3.8 Globulin (1.9 - 4.2 gm/dL) 2.8 Albumin/Globulin Ratio (1.1 - 2.2 %) 1.4 Coagulation PT (9.4 - 12.5 SEC) 20.0 H INR (0.90 - 1.17) 1.82 H APTT (25 - 37 SEC) 32 Hematology CBC w Diff NO MAN DIFF REQ WBC (4.8 - 10.8 /CUMM) 9.1 RBC (4.70 - 6.10 /CUMM) 1.87 L Hgb (14.0 - 18.0 G/DL) 6.2 *L Hct (42 - 52 %) 18.8 *L MCV (80.0 - 94.0 FL) 100.5 H MCH (27.0 - 31.0 PG) 33.3 H MCHC (33.0 - 37.0 G/DL) 33.1 RDW (11.5 - 14.5 %) 18.0 H Plt Count (130 - 400 /CUMM) 355 MPV (7.4 - 10.4 FL) 8.6 Gran % (42.2 - 75.2 %) 70.2 Lymphocytes % (20.5 - 51.1 %) 15.0 L Monocytes % (1.7 - 9.3 %) 14.1 H Eosinophils % (0 - 5 %) 0.5 Basophils % (0.0 - 2.0 %) 0.2 Absolute Granulocytes (1.4 - 6.5 /CUMM) 6.4 Absolute Lymphocytes (1.2 - 3.4 /CUMM) 1.4 Absolute Monocytes (0.10 - 0.60 /CUMM) 1.3 H Absolute Eosinophils (0.0 - 0.7 /CUMM) 0 Absolute Basophils (0.0 - 0.2 /CUMM) 0 Urines Urinalysis LIGHT H Urine Color (YEL,AMB,STR) YEL Urine Clarity (CLEAR) HAZY H Urine pH (5.0 - 8.0) 6.0 Ur Specific [place] (1.001 - 1.035) 1.020 Urine Protein (NEG,<30 MG/DL) TRACE H Urine Ketones (NEG) NEG Urine Nitrite (NEG) NEG Urine Bilirubin (NEG) NEG Urine Urobilinogen (0.1 - 1.0 EU/dl) 1.0 Ur Leukocyte Esterase (NEG) NEG Ur Microscopic SEDIMENT EXAMINED Urine RBC (0 - 5 /HPF) 1-3 Urine WBC (0 - 2 /HPF) 3-5 H Ur Epithelial Cells (NONE,FEW) FEW Urine Bacteria (NEG/NONE) RARE H Urine Mucus (FEW,NONE) FEW Urine Hemoglobin (NEG) NEG Urine Glucose (N MG/DL) NEG 03/13 2130 Chemistry Troponin I Cancelled
--- NOTE | 2018-03-15 14:16 | PN- Cardiology ---
Subjective Subjective: The patient is comfortable, sitting in bed. He denies any cardiac symptoms. He remains on supplemental oxygen. Objective Vital Signs and I&Os Vital Signs Date Time Temp Pulse Resp B/P B/P Pulse O2 O2 Flow FiO2 Mean Ox Delivery Rate 03/15 0820 100 108/58 03/15 0820 100 108/58 03/15 0820 100 108/58 03/15 0800 97 Nasal 1.0L Cannula 03/15 0653 98.7 106 20 108/56 94 Nasal Cannula 03/15 0000 Nasal 1.0L Cannula 03/14 2352 98.3 117 20 112/72 97 Nasal Cannula 03/14 2210 116 112/72 03/14 2210 117 112/72 03/14 2210 117 112/72 03/14 1643 97.9 114 20 144/62 95 03/14 1600 Nasal 1.5L Cannula 03/14 1430 97.4 72 18 110/72 97 Nasal 2.0L Cannula Intake & Output 03/15 1600 03/15 0800 03/15 0000 03/14 1600 03/14 0800 03/14 0000 Intake Total 200 450 800 860 0 Output Total 700 0 Balance 200 450 100 860 0 Intake, IV 200 800 Intake, Oral 450 800 60 0 Number 1 Bowel Movements Output, Urine 700 0 Patient 170 lb 167 lb Weight Weight Bed scale Reported by Patient Measurement Method Physical Exam: General Appearance: well developed/nourished, alert, awake, oriented Head: normal HEENT: Normal Neck: supple, JVP normal, carotid upstrokes normal bilaterally, no masses or thyromegaly Respiratory: chest non-tender, clear to auscultation and percussion bilaterally Cardiovascular: regular rate/rhythm, normal S1, S2, 2/6 systolic murmur Abdomen: normal bowel sounds, soft, non-tender Extremities: normal inspection, no edema Vascular: Pulses are 2+ and equal bilaterally Neurologic: Grossly normal/nonfocal Current Medications: Current Medications Sig/Cesar Start time Last Medication Dose Route Stop Time Status Admin Acetaminophen 325 MG Q6 PRN 03/13 2330 AC PO Amlodipine Besylate 5 MG DAILY 03/14 1930 AC 03/15 PO 0820 Apixaban 5 MG BID 03/14 2100 AC 03/15 PO 0820 Atorvastatin Calcium 20 MG 1700 03/14 1700 AC 03/14 PO 1744 Insulin Aspart 0 TIDAC 03/14 0800 AC 03/14 SC 1754 Lisinopril 10 MG DAILY 03/14 1930 AC 03/15 PO 0820 Magnesium Sulfate 1 GM .STK-MED ONE 03/15 0253 DC IV 03/15 0254 Magnesium Sulfate 1 GM .STK-MED ONE 03/15 0045 DC IV 03/15 0046 Magnesium Sulfate 1 GM Q2H 03/14 2345 DC 03/15 Dextrose/Water 100 ML IV 03/15 0344 0253 Metoprolol Succinate 100 MG DAILY 03/14 1927 AC 03/15 PO 0820 Omeprazole 40 MG BID 03/14 2100 AC 03/15 PO 0820 Pantoprazole Sodium 40 MG BID 03/14 0900 DC 03/14 IV 0825 Patient Medication 1 ED ONE ONE 03/14 1545 DC Teaching ED 03/14 1546 Potassium Chloride 40 MEQ ONCE ONE 03/14 1930 DC 03/14 PO 03/14 193 2212 Results Last 48 Hrs of Labs/Mics: Laboratory Tests 03/15/18 0651: Anion Gap 12, Estimated GFR > 60, BUN/Creatinine Ratio 18.9, Magnesium 1.8, CBC w Diff NO MAN DIFF REQ, RBC 2.55 L, MCV 97.7 H, MCH 32.7 H, MCHC 33.5, RDW 17.6 H, MPV 8.9, Gran % 84.3 H, Lymphocytes % 6.2 L, Monocytes % 9.1, Eosinophils % 0.3, Basophils % 0.1, Absolute Granulocytes 7.9 H, Absolute Lymphocytes 0.6 L, Absolute Monocytes 0.9 H, Absolute Eosinophils 0, Absolute Basophils 0 03/14/18 1730: Anion Gap 13, Estimated GFR > 60, BUN/Creatinine Ratio 21.1, Hemoglobin A1c Pending, Magnesium 1.1 L, Troponin I 0.03, CBC w Diff NO MAN DIFF REQ, RBC 2.60 L, MCV 98.2 H, MCH 32.3 H, MCHC 32.8 L, RDW 17.9 H, MPV 9.6, Gran % 82.1 H , Lymphocytes % 9.4 L, Monocytes % 8.2, Eosinophils % 0.1, Basophils % 0.2, Absolute Granulocytes 7.6 H, Absolute Lymphocytes 0.9 L, Absolute Monocytes 0.8 H, Absolute Eosinophils 0, Absolute Basophils 0 03/14/18 1200: Troponin I Cancelled 03/14/18 1122: PT 17.1 H, INR 1.56 H 03/14/18 0941: CBC w Diff NO MAN DIFF REQ, RBC 2.78 L, MCV 97.5 H, MCH 32.3 H, MCHC 33.1, RDW 17.3 H, MPV 9.1, Gran % 73.5, Lymphocytes % 12.4 L, Monocytes % 12.3 H, Eosinophils % 0.3, Basophils % 1.5, Absolute Granulocytes 6.3, Absolute Lymphocytes 1.1 L, Absolute Monocytes 1.1 H, Absolute Eosinophils 0, Absolute Basophils 0.1 03/14/18 0410: Anion Gap 12, Estimated GFR 54 L, BUN/Creatinine Ratio 20.0, Iron 25 L, TIBC 425, Ferritin 14.1 L, Troponin I 0.01, TSH 4.260 H, Cortisol AM Sample 9.3, CBC w Diff NO MAN DIFF REQ, RBC 2.00 L, MCV 99.2 H, MCH 32.9 H, MCHC 33.2, RDW 17.5 H, MPV 8.7, Gran % 69.8, Lymphocytes % 17.2 L, Monocytes % 12.1 H, Eosinophils % 0.5, Basophils % 0.4, Absolute Granulocytes 5.0, Absolute Lymphocytes 1.2, Absolute Monocytes 0.9 H, Absolute Eosinophils 0, Absolute Basophils 0 03/14/18 0040: Urine Osmolality 03/14/18 0040: Urinalysis LIGHT H, Urine Color YEL, Urine Clarity HAZY H, Urine pH 6.0, Ur Specific [place] 1.020, Urine Protein TRACE H, Urine Ketones NEG, Urine Nitrite NEG, Urine Bilirubin NEG, Urine Urobilinogen 1.0, Ur Leukocyte Esterase NEG, Ur Microscopic SEDIMENT EXAMINED, Urine RBC 1-3, Urine WBC 3-5 H, Ur Epithelial Cells FEW, Urine Bacteria RARE H, Urine Mucus FEW, Urine Hemoglobin NEG, Urine Glucose NEG 03/13/18 2145: Anion Gap 13, Estimated GFR 49 L, BUN/Creatinine Ratio 17.9, Glucose 107 H, Serum Osmolality 273 L, Calcium 8.7, Total Bilirubin 0.7, AST 29, ALT 30, Alkaline Phosphatase 80, Troponin I < 0.01, Jhk-N-Gvmslinptvs Pept 2610 H, Total Protein 6.6, Albumin 3.8, Globulin 2.8, Albumin/Globulin Ratio 1.4, PT 20.0 H, INR 1.82 H, APTT 32, CBC w Diff NO MAN DIFF REQ, RBC 1.87 L, MCV 100.5 H, MCH 33.3 H, MCHC 33.1, RDW 18.0 H, MPV 8.6, Gran % 70.2, Lymphocytes % 15.0 L, Monocytes % 14.1 H, Eosinophils % 0.5, Basophils % 0.2, Absolute Granulocytes 6.4, Absolute Lymphocytes 1.4, Absolute Monocytes 1.3 H, Absolute Eosinophils 0, Absolute Basophils 0 03/13/18 2130: Troponin I Cancelled Assessment/Plan Assessment/Plan Assessment: 1. Anemia with evidence of GI bleeding, gastritis and small hiatal hernia noted on endoscopy 2. History of coronary disease, status post stenting and bypass surgery 3. Atrial fibrillation on anticoagulant therapy 4. Moderate to severe mitral and tricuspid insufficiency 5. Chronic obstructive pulmonary disease 6. Hypertension 7. Hyperlipidemia 8. Diabetes Recommendations: -The patient remains stable from a cardiac standpoint. -Endoscopy report noted. Restart Eliquis when cleared by GI -According to the patient, he will have further testing/colonoscopy/etc. as outpatient -Wean supplemental oxygen -Out of bed as tolerated -Ambulate as tolerated -Continue regular cardiac medications. Continue telemetry? No
[2018-03-15 14:42] VITALS: BP 112/62
[2018-03-15 23:00] VITALS: BP 130/66
[2018-03-16 06:30] VITALS: BP 138/80
[2018-03-16 07:50] LABS: ABSOLUTE BASOPHIL COUNT 0 /CUMM (0.0-0.2); ABSOLUTE EOSINOPHIL COUNT 0 /CUMM (0.0-0.7); ABSOLUTE LYMPH COUNT 0.9 /CUMM (1.2-3.4); ABSOLUTE MONOCYTE COUNT 1.2 /CUMM (0.10-0.60); BASOPHIL % 0.1 % (0.0-2.0); EOSINOPHIL % 0.3 % (0-5); GRANULOCYTE % 80.7 % (42.2-75.2); HEMATOCRIT 26.3 % (42-52); MEAN CORPUSCULAR HGB 32.5 PG (27.0-31.0); MEAN CORPUSCULAR VOLUME 98.6 FL (80.0-94.0); PLATELET COUNT 302 /CUMM (130-400); RBC DISTRIBUTION WIDTH 17.7 % (11.5-14.5); RED BLOOD CELL CT 2.67 /CUMM (4.70-6.10); WHITE BLOOD CELL COUNT 11.1 /CUMM (4.8-10.8)
--- NOTE | 2018-03-16 08:46 | PN- Att Addend ---
Attending Addendum Attending Brief Note Patient seen and examined. Overnight on telemetry monitoring he had an episode of rapid ventricular response with heart rate in the 160s. Patient reports that overnight he had an anxiety episode when he got tangled telemetry leads and oxygen cannula. Somewhat better when this was resolved. This morning he denies chest pain or shortness of breath. Denies palpitations. Denies cough. Denies abdominal pain. Denies dysuria. Denies diarrhea. He was on oxygen supplementation when I evaluated him. It is noted that he was on room air on admission. He was on oxygen supplementation following his EGD. On room air today his saturation dropped to 87-88%. His heart rate went up into the 140s while laying down in bed at rest. The oxygen placed back his saturations went back up into the 90s. Remained in A. fib with mild rapid ventricular response. Admits to history of tobacco use but quit smoking 30 years ago. Denies any chronic cough. Patient presented with complaints of dyspnea on exertion although this is not baseline for him. He continues to admit to dyspnea on exertion with activities as simple as ambulating to the bathroom while he in the hospital. His hemoglobin level is stable today. White cell count is trending upwards. He does have increased granulocytes. Is also noted to have increased monocytes however he has had this chronically on and off. Vital Signs Date Time Temp Pulse Resp B/P B/P Pulse O2 O2 Flow FiO2 Mean Ox Delivery Rate 03/16 0803 110 138/81 03/16 0802 110 138/81 03/16 0802 110 138/81 03/16 0630 98.8 129 22 138/80 92 Nasal Cannula 03/16 0000 Nasal 1.0L Cannula 03/15 2300 98.3 101 18 130/66 93 03/15 1442 99.0 114 20 112/62 93 Room Air General appearance: Well-developed and not in any acute distress. HEENT: Anicteric, no pallor, pupils equal and reactive. Neck: Supple with no jugular venous distention. Heart: S1-S2 IRregular with no audible murmur. Lungs: Diminished breath sounds in the lung bases bilaterally. No added sounds. Abdomen: Nondistended with normal bowel sounds. Soft, nontender with no palpable masses. Extremities: No pedal edema. No cyanosis. Skin: Intact Recommendations: 1. Acute hypoxic respiratory failure. 2. Acute blood loss anemia secondary to gastrointestinal bleeding. 3.. Atrial fibrillation on anticoagulation 4.. Coronary artery disease 5.. Abnormal TSH. 6. Leukocytosis. Plan: -Obtain chest x-ray. -Resume patient's home dose of Lasix 20 mg orally daily. If chest x-ray shows evidence of volume overload would suggest Lasix 20 mg IV in addition to his oral dose. -Patient remains in atrial fibrillation. He had an episode of rapid ventricular response overnight likely related to an anxiety episode he had when he was entangled in his telemetry leads and oxygen, will. However this morning she is a rapid ventricular response at rest. -Continue metoprolol at current dose. Follow-up with the cardiology service for further rate control recommendations. -Follow-up echocardiogram recommendations. -Follow-up TSH. -H&H is stable. Since patient will remain in the hospital overnight I did suggest that his colonoscopy could be done in the inpatient setting. Patient however declined stating he would rather undergo the bowel prep at home. -Etiology of his leukocytosis on Present. He is afebrile. He is hemodynamically stable. He has no complaints suggestive of an infectious process. Follow-up chest x-ray.
--- NOTE | 2018-03-16 08:47 | PN- Housestaff ---
Subjective Follow-up For: GI bleed Acute blood loss anemia Hyponatremia Acute kidney injury Atrial fibrillation Tele-Events Since Last Visit: Atrial fibrilliation HR up to 160s in early am Subjective: Patient seen and examined. He is seen sitting upright in bed resting comfortably maintained on supplemental oxygen via nasal cannula. He appears to be in no acute distress. He reports feeling well and denies any evidence of further breathing. He is in good spirits, and complains of only mild arm pain that he attributes to the multiple IV lines he has had placed. Review of Systems Constitutional: Reports: see HPI. Objective Last 24 Hrs of Vital Signs/I&O Vital Signs Date Time Temp Pulse Resp B/P B/P Pulse O2 O2 Flow FiO2 Mean Ox Delivery Rate 03/16 0803 110 138/81 03/16 0802 110 138/81 03/16 0802 110 138/81 03/16 0630 98.8 129 22 138/80 92 Nasal Cannula 03/16 0000 Nasal 1.0L Cannula 03/15 2300 98.3 101 18 130/66 93 03/15 1442 99.0 114 20 112/62 93 Room Air Physical Exam General Appearance: Alert, Oriented X3, Cooperative, No Acute Distress Other Physical Findings: -Gen: well developed, well nourished elderly man in no acute distress -HEENT: NCAT, PERRL, EOMI, anicteric sclera, MMM, nasal cannula in place -Neck: Supple, no JVD, trachea midline, no accessory respiratory muscle use -Card: irregularly irregular, tachycardic -Pulm: CTA bilaterally -Abd: Soft, NT, ND, BS + -Neuro: Awake and alert, CN II-XII grossly intact -Ext: no edema Current Medications: Current Medications Sig/Cesar Start time Last Medication Dose Route Stop Time Status Admin Acetaminophen 325 MG Q6 PRN 03/13 2330 AC PO Amlodipine Besylate 5 MG DAILY 03/14 1930 AC 03/16 PO 0803 Apixaban 5 MG BID 03/14 2100 AC 03/16 PO 0803 Atorvastatin Calcium 20 MG 1700 03/14 1700 AC 03/15 PO 1707 Insulin Aspart 0 TIDAC 03/14 0800 AC 03/14 SC 1754 Lisinopril 10 MG DAILY 03/14 1930 AC 03/16 PO 0802 Metoprolol Succinate 100 MG DAILY 03/14 1927 AC 03/16 PO 0802 Omeprazole 40 MG BID 03/14 2100 AC 03/16 PO 0802 Last 24 Hrs of Lab/Isaias Results Last 24 Hrs of Labs/Mics: Laboratory Tests 03/16/18 0651: Anion Gap 12, Estimated GFR > 60, BUN/Creatinine Ratio 17.5, TSH &T3 &Free T4 Intrp 3.340, CBC w Diff NO MAN DIFF REQ, RBC 2.67 L, MCV 98.6 H, MCH 32.5 H, MCHC 33.0, RDW 17.7 H, MPV 9.0, Gran % 80.7 H, Lymphocytes % 8.2 L, Monocytes % 10.7 H, Eosinophils % 0.3, Basophils % 0.1, Absolute Granulocytes 9.0 H, Absolute Lymphocytes 0.9 L, Absolute Monocytes 1.2 H, Absolute Eosinophils 0, Absolute Basophils 0 Assessment/Plan Assessment: 77 year old man with multiple medical problems significant for afib on eliquis sent in by his PCP for reduced hemoglobin on blood work. Patients heart rate was elevated up to 160 overnight and is now in 110s/120s. Hemoglobin remains stable, but now patient has leukocytosis of unclear etiology. He is still requiring supplemental oxygen and desaturates to the high 80s on room air. Chest X-ray is to be obtained today. Home lasix is restarted; he may require an additional dose if chest x-ray shows fluid. TSH was normal. Patient is to follow up as an outpatient for colonoscopy. He is an anticipated discharge to home tomorrow. Problem List -Acute blood loss anemia, probable lower GI bleed, stable -Acute Hypoxic Respiratory failure -Leukocytosis, possibly reactive -Hyponatremia, likely due to lasix; improving -Acute kidney injury, likely prerenal azotemia; resolved -Atrial fibrillation, on Eliquis Plan -Continue telemetry floor admission -Telemetry monitoring -Supplemental oxygen, goal > 92%, no oxygen at baseline -TRC with Nebs PRN -Accuchecks TIDAC/HS with Novolog SSI -Restart Lasix 20 mg PO BID -Continue home meds: amlodipine, eliquis, atorvastatin, lisinopril, metoprolol, omeprazole -Cardiology following for anticoagulation -GI follow for possible bleed -Type & Cross -Transfuse PRBC to hemoglobin > 8.0 as needed -Total PRBC transfused: 2 -Daily CBC -Follow up chest x-ray -Follow up echocardiogram -Pain control with acetaminophen -Diabetic diet -DVT PPx with Eliquis -FULL CODE -Outpatient colonoscopy Problem List: 1. GI bleed Pain Ratin Pain Location: None Pain Goal: Pain 4 or less Pain Plan: See assessment Tomorrow's Labs & Rationales: CBC - anemia/WBC
--- NOTE | 2018-03-16 13:24 | History & Physical ---
General Information and HPI Source of Information: patient, old records Exam Limitations: no limitations Allergies/Medications Allergies: Coded Allergies: NO KNOWN ALLERGIES (12/05/12) Home Med list Amlodipine Besylate (Norvasc) 5 MG TABLET 1 TAB PO DAILY HTN (Reported) Apixaban (Eliquis) 5 MG TABLET 1 TAB PO BID A.Fib (Reported) Aspirin (Ecotrin*) 81 MG TABLET.DR 1 TAB PO DAILY Heart (Reported) Furosemide 20 MG TABLET 1 TAB PO DAILY Water retention (Reported) Metformin HCl (Metformin HCl ER) 500 MG TAB.ER.24H 1 TAB PO DAILY Diabetes ( Reported) Metoprolol Succinate 100 MG TAB.ER.24H 1 TAB PO DAILY Heart (Reported) Potassium Chloride 10 MEQ CAPSULE.ER 1 CAP PO DAILY Low potassium (Reported) Ramipril 10 MG CAPSULE 1 CAP PO DAILY HTN (Reported) Simvastatin (Simvastatin*) 20 MG TABLET 1 TAB PO QPM Cholestrol (Reported) Past History Travel History Traveled to [place] past 21 day No Medical History Blood Transfusion Hx: No Neurological: NONE EENT: NONE Cardiovascular: AFIB, hypertension, BYPASS 1998 STENT Respiratory: NONE Gastrointestinal: POLYPS DIVERTICULOSIS Hepatic: NONE Renal: BPH? Musculoskeletal: NONE Psychiatric: NONE Endocrine: PREDIABETIC Cancer(s): NONE SNOW REMOVAL/PLOWING/Reproductive: NONE History of MRSA: No History of VRE: No History of CDIFF: No Isolation History: Standard Influenza Vaccine: 08/18/17 Surgical History Surgical History: none, non-contributory Past Family/Social History Psychosocial History Smoking Status: Former Smoker ETOH Use: denies use Illicit Drug Use: denies illicit drug use Functional Ability ADLs Independent: dressing, eating, toileting, bathing. Ambulation: independent IADLs Independent: shopping, housework, finances, food prep, telephone, transportation , medication admin. Exam & Diagnostic Data Diagnostic Data EKG Results 03/14/2018: Atrial fibrillation with a moderate mean ventricular response, low frontal lead voltage, and ST-T wave abnormalities consistent with possible ischemia. Less ST-T wave abnormalities when compared to tracing from 03/13/2018. CXR Results 03/14/2018: No acute pulmonary findings. Mildly enlarged cardiac silhouette. Core Measures/Misc (08/04) Cerebrovascular Accident CVA/TIA Diagnosis: No VTE (View Protocol) VTE Risk Factors Age>40 Sepsis (View protocol) Sepsis Present: No
--- NOTE | 2018-03-16 13:33 | RADIOLOGY REPORT ---
EXAMINATION: XR PORTABLE CHEST CLINICAL INFORMATION: Hypoxia and leukocytosis. COMPARISON: Chest radiographs dated 03/14/2018 and 02/14/2011. TECHNIQUE: Portable frontal view of the chest was obtained. FINDINGS: Again, the heart size is at least top normal. There has been a prior median sternotomy. No pulmonary vascular congestion or oj pulmonary edema are seen. There is no infiltrate. There are small bilateral pleural effusions. No pneumothorax is seen. There is no acute osseous abnormality. There is calcific tendinitis of the left rotator cuff. IMPRESSION: 1. The heart size is at least top normal. No congestive heart failure is seen. 2. No focal infiltrate is seen. 3. There are small bilateral pleural effusions.
[2018-03-16 14:18] VITALS: BP 128/68
--- NOTE | 2018-03-16 15:16 | PN- Cardiology ---
Subjective Subjective: Clinically, the patient is doing well. He denies any cardiac symptoms. Elevated heart rate noted overnight Objective Vital Signs and I&Os Vital Signs Date Time Temp Pulse Resp B/P B/P Pulse O2 O2 Flow FiO2 Mean Ox Delivery Rate 03/16 1418 98.0 104 20 128/68 95 Nasal 3.5L Cannula 03/16 0803 110 138/81 03/16 0802 110 138/81 03/16 0802 110 138/81 03/16 0800 97 Nasal 1.0L Cannula 03/16 0630 98.8 129 22 138/80 92 Nasal Cannula 03/16 0000 Nasal 1.0L Cannula 03/15 2300 98.3 101 18 130/66 93 Intake & Output 03/16 1600 03/16 0800 03/16 0000 03/15 1600 03/15 0800 03/15 0000 Intake Total 410 370 200 450 Output Total 500 Balance -90 370 200 450 Intake, IV 10 20 200 Intake, Oral 400 350 450 Number 1 Bowel Movements Output, Urine 500 Physical Exam: General Appearance: well developed/nourished, alert, awake, oriented Head: normal HEENT: Normal Neck: supple, JVP normal, carotid upstrokes normal bilaterally, no masses or thyromegaly Respiratory: chest non-tender, clear to auscultation and percussion bilaterally Cardiovascular: regular rate/rhythm, normal S1, S2, 2/6 systolic murmur Abdomen: normal bowel sounds, soft, non-tender Extremities: normal inspection, no edema Vascular: Pulses are 2+ and equal bilaterally Neurologic: Grossly normal/nonfocal Current Medications: Current Medications Sig/Cesar Start time Last Medication Dose Route Stop Time Status Admin Acetaminophen 325 MG Q6 PRN 03/13 2330 AC PO Amlodipine Besylate 5 MG DAILY 03/14 1930 AC 03/16 PO 0803 Apixaban 5 MG BID 03/14 2100 AC 03/16 PO 0803 Atorvastatin Calcium 20 MG 1700 03/14 1700 AC 03/15 PO 1707 Furosemide 20 MG 7:30 AM, & 4:30 PM 03/16 1130 AC 03/16 PO 1256 Insulin Aspart 0 TIDAC 03/14 0800 AC 03/14 SC 1754 Lisinopril 10 MG DAILY 03/14 1930 AC 03/16 PO 0802 Metoprolol Succinate 100 MG DAILY 03/14 1927 AC 03/16 PO 0802 Omeprazole 40 MG BID 03/14 2100 AC 03/16 PO 0802 Results Last 48 Hrs of Labs/Mics: Laboratory Tests 03/16/18 0651: Anion Gap 12, Estimated GFR > 60, BUN/Creatinine Ratio 17.5, TSH &T3 &Free T4 Intrp 3.340, CBC w Diff NO MAN DIFF REQ, RBC 2.67 L, MCV 98.6 H, MCH 32.5 H, MCHC 33.0, RDW 17.7 H, MPV 9.0, Gran % 80.7 H, Lymphocytes % 8.2 L, Monocytes % 10.7 H, Eosinophils % 0.3, Basophils % 0.1, Absolute Granulocytes 9.0 H, Absolute Lymphocytes 0.9 L, Absolute Monocytes 1.2 H, Absolute Eosinophils 0, Absolute Basophils 0 03/15/18 0651: Anion Gap 12, Estimated GFR > 60, BUN/Creatinine Ratio 18.9, Magnesium 1.8, CBC w Diff NO MAN DIFF REQ, RBC 2.55 L, MCV 97.7 H, MCH 32.7 H, MCHC 33.5, RDW 17.6 H, MPV 8.9, Gran % 84.3 H, Lymphocytes % 6.2 L, Monocytes % 9.1, Eosinophils % 0.3, Basophils % 0.1, Absolute Granulocytes 7.9 H, Absolute Lymphocytes 0.6 L, Absolute Monocytes 0.9 H, Absolute Eosinophils 0, Absolute Basophils 0 03/14/18 1730: Anion Gap 13, Estimated GFR > 60, BUN/Creatinine Ratio 21.1, Hemoglobin A1c Pending, Magnesium 1.1 L, Troponin I 0.03, CBC w Diff NO MAN DIFF REQ, RBC 2.60 L, MCV 98.2 H, MCH 32.3 H, MCHC 32.8 L, RDW 17.9 H, MPV 9.6, Gran % 82.1 H , Lymphocytes % 9.4 L, Monocytes % 8.2, Eosinophils % 0.1, Basophils % 0.2, Absolute Granulocytes 7.6 H, Absolute Lymphocytes 0.9 L, Absolute Monocytes 0.8 H, Absolute Eosinophils 0, Absolute Basophils 0 Assessment/Plan Assessment/Plan Assessment: 1. Anemia with evidence of GI bleeding, gastritis and small hiatal hernia noted on endoscopy 2. History of coronary disease, status post stenting and bypass surgery 3. Atrial fibrillation on anticoagulant therapy-elevated rate noted overnight, rate stable at the moment 4. Moderate to severe mitral and tricuspid insufficiency 5. Chronic obstructive pulmonary disease 6. Hypertension 7. Hyperlipidemia 8. Diabetes Recommendations: -The patient remains stable from a cardiac standpoint. -Endoscopy report noted. Restart Eliquis when cleared by GI -According to the patient, he will have further testing/colonoscopy/etc. as outpatient -Wean supplemental oxygen -Out of bed as tolerated -Ambulate as tolerated -Continue regular cardiac medications. Continue telemetry? Yes
--- NOTE | 2018-03-16 16:37 | PN- Gastroenterology ---
Assessment/Plan GI Assessment/Recommendations: ASSESSMENT: 1. Atrial fibrillation 2. Chronic use antiplatelet agent 3. Acute blood loss anemia none further. 4. Gastritis with erosion RECOMMENDATIONS: 1. Resume anticoagulation 2. Patient follow-up with Dr. Cruz Thompson for colonoscopy as an outpatient 3. GI will sign off for now. Please do not hesitate to recontact us as needed arises. Subjective Subjective: Patient is doing well. He is had no further signs of GI bleeding. Patient is here to go home. Agrees to have colonoscopy as an outpatient. He is been seen by Dr. Cruz Thompson in the past. Objective Vital Signs and I&Os Vital Signs Date Time Temp Pulse Resp B/P B/P Pulse O2 O2 Flow FiO2 Mean Ox Delivery Rate 03/16 1418 98.0 104 20 128/68 95 Nasal 3.5L Cannula 03/16 0803 110 138/81 03/16 0802 110 138/81 03/16 0802 110 138/81 03/16 0800 97 Nasal 1.0L Cannula 03/16 0630 98.8 129 22 138/80 92 Nasal Cannula 03/16 0000 Nasal 1.0L Cannula 03/15 2300 98.3 101 18 130/66 93 Intake & Output 03/16 1600 03/16 0400 03/15 1600 03/15 0400 03/14 1600 03/14 0400 Intake Total 410 627 627 9303 0 Output Total 500 700 0 Balance -90 570 450 960 0 Intake, IV 10 220 800 Intake, Oral 400 350 450 860 0 Number 1 Bowel Movements Output, Urine 500 700 0 Patient 170 lb 170 lb Weight Weight Bed scale Bed scale Measurement Method Physical Exam General Appearance: no apparent distress, alert, awake Cardiovascular: irregularly irregular Abdomen: soft, non-tender, no organomegaly Neurologic/Psychiatric: awake, alert, oriented x 3 Skin: normal color, warm/dry Current Medications: Current Medications Sig/Cesar Start time Last Medication Dose Route Stop Time Status Admin Acetaminophen 325 MG Q6 PRN 03/13 2330 AC PO Amlodipine Besylate 5 MG DAILY 03/14 1930 AC 03/16 PO 0803 Apixaban 5 MG BID 03/14 2100 AC 03/16 PO 0803 Atorvastatin Calcium 20 MG 1700 03/14 1700 AC 03/15 PO 1707 Furosemide 20 MG 7:30 AM, & 4:30 PM 03/16 1130 AC 03/16 PO 1256 Insulin Aspart 0 TIDAC 03/14 0800 AC 03/14 SC 1754 Lisinopril 10 MG DAILY 03/14 1930 AC 03/16 PO 0802 Metoprolol Succinate 100 MG DAILY 03/14 192 AC 03/16 PO 0802 Omeprazole 40 MG BID 03/14 2100 AC 03/16 PO 08 Results Pertinent Lab Results: Laboratory Tests 03/16 0651 Chemistry Sodium (137 - 145 mmol/L) 135 L Potassium (3.5 - 5.1 mmol/L) 4.6 Chloride (98 - 107 mmol/L) 98 Carbon Dioxide (22 - 30 mmol/L) 25 Anion Gap (5 - 16) 12 BUN (9 - 20 mg/dL) 14 Creatinine (0.7 - 1.2 mg/dL) 0.8 Estimated GFR (>60 ml/min) > 60 BUN/Creatinine Ratio (7 - 25 %) 17.5 TSH &T3 &Free T4 Intrp (0.27 - 4.20 uIU/mL) 3.340 Hematology CBC w Diff NO MAN DIFF REQ WBC (4.8 - 10.8 /CUMM) 11.1 H RBC (4.70 - 6.10 /CUMM) 2.67 L Hgb (14.0 - 18.0 G/DL) 8.7 L Hct (42 - 52 %) 26.3 L MCV (80.0 - 94.0 FL) 98.6 H MCH (27.0 - 31.0 PG) 32.5 H MCHC (33.0 - 37.0 G/DL) 33.0 RDW (11.5 - 14.5 %) 17.7 H Plt Count (130 - 400 /CUMM) 302 MPV (7.4 - 10.4 FL) 9.0 Gran % (42.2 - 75.2 %) 80.7 H Lymphocytes % (20.5 - 51.1 %) 8.2 L Monocytes % (1.7 - 9.3 %) 10.7 H Eosinophils % (0 - 5 %) 0.3 Basophils % (0.0 - 2.0 %) 0.1 Absolute Granulocytes (1.4 - 6.5 /CUMM) 9.0 H Absolute Lymphocytes (1.2 - 3.4 /CUMM) 0.9 L Absolute Monocytes (0.10 - 0.60 /CUMM) 1.2 H Absolute Eosinophils (0.0 - 0.7 /CUMM) 0 Absolute Basophils (0.0 - 0.2 /CUMM) 0 03/15 03/14 0651 1730 Chemistry Sodium (137 - 145 mmol/L) 134 L 133 L Potassium (3.5 - 5.1 mmol/L) 4.7 3.6 Chloride (98 - 107 mmol/L) 99 102 Carbon Dioxide (22 - 30 mmol/L) 23 19 L Anion Gap (5 - 16) 12 13 BUN (9 - 20 mg/dL) 17 19 Creatinine (0.7 - 1.2 mg/dL) 0.9 0.9 Estimated GFR (>60 ml/min) > 60 > 60 BUN/Creatinine Ratio (7 - 25 %) 18.9 21.1 Hemoglobin A1c (4.2 - 5.8 %) Pending Magnesium (1.6 - 2.3 mg/dL) 1.8 1.1 L Troponin I (<0.11 ng/ml) 0.03 Hematology CBC w Diff NO MAN DIFF REQ NO MAN DIFF REQ WBC (4.8 - 10.8 /CUMM) 9.4 9.3 RBC (4.70 - 6.10 /CUMM) 2.55 L 2.60 L Hgb (14.0 - 18.0 G/DL) 8.4 L 8.4 L Hct (42 - 52 %) 24.9 L 25.5 L MCV (80.0 - 94.0 FL) 97.7 H 98.2 H MCH (27.0 - 31.0 PG) 32.7 H 32.3 H MCHC (33.0 - 37.0 G/DL) 33.5 32.8 L RDW (11.5 - 14.5 %) 17.6 H 17.9 H Plt Count (130 - 400 /CUMM) 301 210 MPV (7.4 - 10.4 FL) 8.9 9.6 Gran % (42.2 - 75.2 %) 84.3 H 82.1 H Lymphocytes % (20.5 - 51.1 %) 6.2 L 9.4 L Monocytes % (1.7 - 9.3 %) 9.1 8.2 Eosinophils % (0 - 5 %) 0.3 0.1 Basophils % (0.0 - 2.0 %) 0.1 0.2 Absolute Granulocytes (1.4 - 6.5 /CUMM) 7.9 H 7.6 H Absolute Lymphocytes (1.2 - 3.4 /CUMM) 0.6 L 0.9 L Absolute Monocytes (0.10 - 0.60 /CUMM) 0.9 H 0.8 H Absolute Eosinophils (0.0 - 0.7 /CUMM) 0 0 Absolute Basophils (0.0 - 0.2 /CUMM) 0 0 03/14 03/14 03/14 1200 1122 0941 Chemistry Troponin I Cancelled Coagulation PT (9.4 - 12.5 SEC) 17.1 H INR (0.90 - 1.17) 1.56 H Hematology CBC w Diff NO MAN DIFF REQ WBC (4.8 - 10.8 /CUMM) 8.6 RBC (4.70 - 6.10 /CUMM) 2.78 L Hgb (14.0 - 18.0 G/DL) 9.0 L Hct (42 - 52 %) 27.1 L MCV (80.0 - 94.0 FL) 97.5 H MCH (27.0 - 31.0 PG) 32.3 H MCHC (33.0 - 37.0 G/DL) 33.1 RDW (11.5 - 14.5 %) 17.3 H Plt Count (130 - 400 /CUMM) 324 MPV (7.4 - 10.4 FL) 9.1 Gran % (42.2 - 75.2 %) 73.5 Lymphocytes % (20.5 - 51.1 %) 12.4 L Monocytes % (1.7 - 9.3 %) 12.3 H Eosinophils % (0 - 5 %) 0.3 Basophils % (0.0 - 2.0 %) 1.5 Absolute Granulocytes (1.4 - 6.5 /CUMM) 6.3 Absolute Lymphocytes (1.2 - 3.4 /CUMM) 1.1 L Absolute Monocytes (0.10 - 0.60 /CUMM) 1.1 H Absolute Eosinophils (0.0 - 0.7 /CUMM) 0 Absolute Basophils (0.0 - 0.2 /CUMM) 0.1 03/14 03/14 0410 0040 Chemistry Sodium (137 - 145 mmol/L) 128 L Potassium (3.5 - 5.1 mmol/L) 4.9 Chloride (98 - 107 mmol/L) 95 L Carbon Dioxide (22 - 30 mmol/L) 22 Anion Gap (5 - 16) 12 BUN (9 - 20 mg/dL) 26 H Creatinine (0.7 - 1.2 mg/dL) 1.3 H Estimated GFR (>60 ml/min) 54 L BUN/Creatinine Ratio (7 - 25 %) 20.0 Iron (49 - 181 ug/dL) 25 L TIBC (261 - 462 ug/dL) 425 Ferritin (17.9 - 464 ng/mL) 14.1 L Troponin I (<0.11 ng/ml) 0.01 TSH (0.270 - 4.200 uIU/mL) 4.260 H Cortisol AM Sample (4.46 - 22.7 ug/dL) 9.3 Hematology CBC w Diff NO MAN DIFF REQ WBC (4.8 - 10.8 /CUMM) 7.1 RBC (4.70 - 6.10 /CUMM) 2.00 L Hgb (14.0 - 18.0 G/DL) 6.6 *L Hct (42 - 52 %) 19.9 *L MCV (80.0 - 94.0 FL) 99.2 H MCH (27.0 - 31.0 PG) 32.9 H MCHC (33.0 - 37.0 G/DL) 33.2 RDW (11.5 - 14.5 %) 17.5 H Plt Count (130 - 400 /CUMM) 307 MPV (7.4 - 10.4 FL) 8.7 Gran % (42.2 - 75.2 %) 69.8 Lymphocytes % (20.5 - 51.1 %) 17.2 L Monocytes % (1.7 - 9.3 %) 12.1 H Eosinophils % (0 - 5 %) 0.5 Basophils % (0.0 - 2.0 %) 0.4 Absolute Granulocytes (1.4 - 6.5 /CUMM) 5.0 Absolute Lymphocytes (1.2 - 3.4 /CUMM) 1.2 Absolute Monocytes (0.10 - 0.60 /CUMM) 0.9 H Absolute Eosinophils (0.0 - 0.7 /CUMM) 0 Absolute Basophils (0.0 - 0.2 /CUMM) 0 Urines Urine Osmolality (300 - 1000 MOSM/KG) 03/14 03/13 0040 2145 Chemistry Sodium (137 - 145 mmol/L) 125 L Potassium (3.5 - 5.1 mmol/L) 4.5 Chloride (98 - 107 mmol/L) 92 L Carbon Dioxide (22 - 30 mmol/L) 21 L Anion Gap (5 - 16) 13 BUN (9 - 20 mg/dL) 25 H Creatinine (0.7 - 1.2 mg/dL) 1.4 H Estimated GFR (>60 ml/min) 49 L BUN/Creatinine Ratio (7 - 25 %) 17.9 Glucose (65 - 99 mg/dL) 107 H Serum Osmolality (285 - 295 MOSM/KG) 273 L Calcium (8.4 - 10.2 mg/dL) 8.7 Total Bilirubin (0.2 - 1.3 mg/dL) 0.7 AST (17 - 59 U/L) 29 ALT (21 - 72 U/L) 30 Alkaline Phosphatase (< 127 U/L) 80 Troponin I (<0.11 ng/ml) < 0.01 Rzd-C-[id number] Pept (<125 pg/mL) 2610 H Total Protein (6.3 - 8.2 g/dL) 6.6 Albumin (3.5 - 5.0 g/dL) 3.8 Globulin (1.9 - 4.2 gm/dL) 2.8 Albumin/Globulin Ratio (1.1 - 2.2 %) 1.4 Coagulation PT (9.4 - 12.5 SEC) 20.0 H INR (0.90 - 1.17) 1.82 H APTT (25 - 37 SEC) 32 Hematology CBC w Diff NO MAN DIFF REQ WBC (4.8 - 10.8 /CUMM) 9.1 RBC (4.70 - 6.10 /CUMM) 1.87 L Hgb (14.0 - 18.0 G/DL) 6.2 *L Hct (42 - 52 %) 18.8 *L MCV (80.0 - 94.0 FL) 100.5 H MCH (27.0 - 31.0 PG) 33.3 H MCHC (33.0 - 37.0 G/DL) 33.1 RDW (11.5 - 14.5 %) 18.0 H Plt Count (130 - 400 /CUMM) 355 MPV (7.4 - 10.4 FL) 8.6 Gran % (42.2 - 75.2 %) 70.2 Lymphocytes % (20.5 - 51.1 %) 15.0 L Monocytes % (1.7 - 9.3 %) 14.1 H Eosinophils % (0 - 5 %) 0.5 Basophils % (0.0 - 2.0 %) 0.2 Absolute Granulocytes (1.4 - 6.5 /CUMM) 6.4 Absolute Lymphocytes (1.2 - 3.4 /CUMM) 1.4 Absolute Monocytes (0.10 - 0.60 /CUMM) 1.3 H Absolute Eosinophils (0.0 - 0.7 /CUMM) 0 Absolute Basophils (0.0 - 0.2 /CUMM) 0 Urines Urinalysis LIGHT H Urine Color (YEL,AMB,STR) YEL Urine Clarity (CLEAR) HAZY H Urine pH (5.0 - 8.0) 6.0 Ur Specific [place] (1.001 - 1.035) 1.020 Urine Protein (NEG,<30 MG/DL) TRACE H Urine Ketones (NEG) NEG Urine Nitrite (NEG) NEG Urine Bilirubin (NEG) NEG Urine Urobilinogen (0.1 - 1.0 EU/dl) 1.0 Ur Leukocyte Esterase (NEG) NEG Ur Microscopic SEDIMENT EXAMINED Urine RBC (0 - 5 /HPF) 1-3 Urine WBC (0 - 2 /HPF) 3-5 H Ur Epithelial Cells (NONE,FEW) FEW Urine Bacteria (NEG/NONE) RARE H Urine Mucus (FEW,NONE) FEW Urine Hemoglobin (NEG) NEG Urine Glucose (N MG/DL) NEG 03/13 2130 Chemistry Troponin I Cancelled
[2018-03-16 22:12] VITALS: BP 130/70
[2018-03-17 06:24] VITALS: BP 140/60
--- NOTE | 2018-03-17 07:17 | Discharge Summary ---
Hospital Course Allergies: Coded Allergies: NO KNOWN ALLERGIES (12/05/12) Discharge Instructions Medications at Discharge Discharge Medications: Continue taking these medications: Potassium Chloride (Potassium Chloride) 10 MEQ CAPSULE.ER 1 Capsule ORAL DAILY Simvastatin (Simvastatin*) 20 MG TABLET 1 Tablet ORAL Every night Apixaban (Eliquis) 5 MG TABLET 1 Tablet ORAL TWICE DAILY Ramipril (Ramipril) 10 MG CAPSULE 1 Capsule ORAL DAILY Amlodipine Besylate (Norvasc) 5 MG TABLET 1 Tablet ORAL DAILY Metoprolol Succinate (Metoprolol Succinate) 100 MG TAB.ER.24H 1 Tablet ORAL DAILY Furosemide (Furosemide) 20 MG TABLET 1 Tablet ORAL DAILY Metformin HCl (Metformin HCl ER) 500 MG TAB.ER.24H 1 Tablet ORAL DAILY Aspirin (Ecotrin*) 81 MG TABLET.DR 1 Tablet ORAL DAILY
--- NOTE | 2018-03-17 07:24 | PN- Housestaff ---
Rosalinda MAYEN,Woody 03/17/18723: Subjective Follow-up For: GI bleed Ivan lopez with RVR CHANEL Hypomagnesemia Tele-Events Since Last Visit: Ivan lopez with HR [id number], average HR 110s-120s Subjective: Patient was seen and examined at bedside. He is resting comfortably. He had no acute events overnight. He remains tachycardic, but asymptomatic. Patient denies any palpitations, chest pain, shortness of breath. He states that overnight he had a well-formed brown nonbloody, nonmelanotic, bowel movement first time since admission. He is concerned about returning home to take care of his who is ill. Review of Systems Constitutional: Denies: chills, fever. EENTM: Reports: no symptoms. Cardiovascular: Denies: chest pain, palpitations. Respiratory: Reports: no symptoms. Gastrointestinal: Reports: no symptoms. Genitourinary: Reports: no symptoms. Musculoskeletal: Reports: no symptoms. Objective Last 24 Hrs of Vital Signs/I&O Vital Signs Date Time Temp Pulse Resp B/P B/P Pulse O2 O2 Flow FiO2 Mean Ox Delivery Rate 03/17 0624 99.3 129 20 140/60 98 Nasal 3.5L Cannula 03/17 0000 Nasal 1.0L Cannula 03/16 2212 97.5 120 18 130/70 95 Nasal 3.5L Cannula 03/16 1418 98.0 104 20 128/68 95 Nasal 3.5L Cannula 03/16 0803 110 138/81 03/16 0802 110 138/81 03/16 0802 110 138/81 03/16 0800 97 Nasal 1.0L Cannula Intake & Output 03/17 0800 03/17 0000 03/16 1600 Intake Total 410 Output Total 500 Balance -90 Intake, IV 10 Intake, Oral 400 Output, Urine 500 Physical Exam General Appearance: Alert, Oriented X3, Cooperative Skin Temp/Moisture Exam: Warm/Dry Cardiovascular: Normal S1, Normal S2, irregularly irregular rhthm, tachycardic HR 110s, systolic murmur Lungs: Clear to Auscultation, Normal Air Movement Abdomen: Normal Bowel Sounds, Soft, No Tenderness Neurological: Normal Speech, Normal Tone, Sensation Intact Current Medications: Current Medications Sig/Cesar Start time Last Medication Dose Route Stop Time Status Admin Acetaminophen 325 MG Q6 PRN 03/13 2330 AC PO Amlodipine Besylate 5 MG DAILY 03/14 1930 AC 03/16 PO 0803 Apixaban 5 MG BID 03/14 2100 AC 03/16 PO 2013 Atorvastatin Calcium 20 MG 1700 03/14 1700 AC 03/16 PO 1822 Furosemide 20 MG 7:30 AM, & 4:30 PM 03/16 1130 AC 03/16 PO 1823 Insulin Aspart 0 TIDAC 03/14 0800 AC 03/14 SC 1754 Lisinopril 10 MG DAILY 03/14 1930 AC 03/16 PO 08 Metoprolol Succinate 100 MG DAILY 03/14 1927 AC 03/16 PO 08 Omeprazole 40 MG BID 03/14 2100 AC 03/16 PO 2013 Last 24 Hrs of Lab/Isaias Results Last 24 Hrs of Labs/Mics: Laboratory Tests 03/17/18 0634: Anion Gap 12, Estimated GFR > 60, BUN/Creatinine Ratio 14.4, Magnesium 1.3 L, CBC w Diff NO MAN DIFF REQ, RBC 2.52 L, MCV 97.9 H, MCH 32.9 H, MCHC 33.6, RDW 16.9 H, MPV 9.2, Gran % 75.1, Lymphocytes % 11.7 L, Monocytes % 11.5 H, Eosinophils % 1.4, Basophils % 0.3, Absolute Granulocytes 5.7, Absolute Lymphocytes 0.9 L, Absolute Monocytes 0.9 H, Absolute Eosinophils 0.1, Absolute Basophils 0 Orders ECHO Findings: Normal size left ventricle. Normal left ventricular wall thickness. No obvious regional wall motion abnormalities. Normal left ventricular ejection fraction visually estimated at 55%. Right Ventricle Normal right ventricular size and function. Right Atrium Moderate to severe right atrial dilatation. Left Atrium Moderate to severe left atrial dilatation. Mitral Valve Mitral valve mildly thickened. Moderate to severe mitral regurgitation. Aortic Valve Trileaflet aortic valve. Mild aortic sclerosis. No hemodynamically significant aortic stenosis. No aortic regurgitation. Tricuspid Valve Structurally normal tricuspid valve. Moderate to severe tricuspid regurgitation. Moderate pulmonary hypertension. Right ventricular systolic pressure estimated to be elevated at 50 mmHg. Pulmonic Valve Pulmonic valve not well visualized, grossly normal. No pulmonic regurgitation. Pericardium No pericardial effusion. Great Vessels Normal size aortic root. Dilated inferior vena cava. CONCLUSIONS Normal size left ventricle. Normal left ventricular wall thickness. No obvious regional wall motion abnormalities. Normal left ventricular ejection fraction visually estimated at 55%. Normal right ventricular size and function. Moderate to severe left atrial dilatation. Moderate to severe mitral regurgitation. Moderate to severe tricuspid regurgitation. Moderate pulmonary hypertension. Dilated inferior vena cava. Assessment/Plan Assessment: Patient is a 77-year-old male with a PMH significant for A. fib on Eliquis, who presented to [facility] due to anemia. He was worked up for a GI bleed with an EGD, and was found to be in A. fib with RVR and was transferred to the telemetry floor. #Acute blood loss anemia secondary to GI bleed GI has signed off for now, plan to pursue a colonoscopy as an outpatient -Continue to monitor CBC #A. fib with RVR Patient is on home dose of Eliquis. Heart rate remains elevated over patient is asymptomatic. Echocardiogram was done and showed moderate pulmonary hypertension, with moderate to severe mitral and tricuspid regurg as well as moderate to severe atrial dilatation, normal LVEF -Continue telemetry monitoring -We'll change metoprolol 100 mg XL daily to 75 mg tartrate twice a day in attempt to manage heart rate -Follow cardiology recommendations #Acute hypoxic respiratory failure -Continue TRC/nebs -Attempts to wean off of O2 #Hypomagnesemia Repleted IV, will follow up repeat magnesium level tomorrow morning and replete as needed #Mild hyponatremia Continues to improve, we'll continue to monitor Diet: Diabetic diet DVT prophylaxis: Sandor Beck CODE STATUS: Full code Problem List: 1. GI bleed 2. Atrial fibrillation with RVR Pain Ratin Pain Location: none Pain Goal: Remain pain free Pain Plan: pain pathway Tomorrow's Labs & Rationales: cbc, bep
[2018-03-17 08:25] LABS: ABSOLUTE BASOPHIL COUNT 0 /CUMM (0.0-0.2); ABSOLUTE EOSINOPHIL COUNT 0.1 /CUMM (0.0-0.7); ABSOLUTE GRANULOCYTE CT 5.7 /CUMM (1.4-6.5); ABSOLUTE LYMPH COUNT 0.9 /CUMM (1.2-3.4); ABSOLUTE MONOCYTE COUNT 0.9 /CUMM (0.10-0.60); BASOPHIL % 0.3 % (0.0-2.0); EOSINOPHIL % 1.4 % (0-5); HEMATOCRIT 24.7 % (42-52); MEAN CORPUSCULAR HGB 32.9 PG (27.0-31.0); MEAN CORPUSCULAR HGB CONC 33.6 G/DL (33.0-37.0); MEAN CORPUSCULAR VOLUME 97.9 FL (80.0-94.0); MEAN PLATELET VOLUME 9.2 FL (7.4-10.4); RBC DISTRIBUTION WIDTH 16.9 % (11.5-14.5); RED BLOOD CELL CT 2.52 /CUMM (4.70-6.10); WHITE BLOOD CELL COUNT 7.6 /CUMM (4.8-10.8)
[2018-03-17 09:11] LABS: GRANULOCYTE % 75.1 % (42.2-75.2); PLATELET COUNT 304 /CUMM (130-400)
--- NOTE | 2018-03-17 10:17 | ECHOCARDIOGRAM REPORT ---
FRANKI LAMB Age: 77 : 1940 Gender: M Exam Date: 03/16/2018 09:12 Exam Location: [address] Ht (in): 67 Wt (lb): 170 BSA: 1.92 BP: 138 / 80 Ordering Physician: Adry Dick MD Referring Physician: Neftaly Orozco MD Technologist: Brenda Cárdenas [facility] Room Number: 179-01 Indications: HEART FAILURE Rhythm: Atrial fibrillation Technical Quality: Fair FINDINGS Left Ventricle Normal size left ventricle. Normal left ventricular wall thickness. No obvious regional wall motion abnormalities. Normal left ventricular ejection fraction visually estimated at 55%. Right Ventricle Normal right ventricular size and function. Right Atrium Moderate to severe right atrial dilatation. Left Atrium Moderate to severe left atrial dilatation. Mitral Valve Mitral valve mildly thickened. Moderate to severe mitral regurgitation. Aortic Valve Trileaflet aortic valve. Mild aortic sclerosis. No hemodynamically significant aortic stenosis. No aortic regurgitation. Tricuspid Valve Structurally normal tricuspid valve. Moderate to severe tricuspid regurgitation. Moderate pulmonary hypertension. Right ventricular systolic pressure estimated to be elevated at 50 mmHg. Pulmonic Valve Pulmonic valve not well visualized, grossly normal. No pulmonic regurgitation. Pericardium No pericardial effusion. Great Vessels Normal size aortic root. Dilated inferior vena cava. CONCLUSIONS Normal size left ventricle. Normal left ventricular wall thickness. No obvious regional wall motion abnormalities. Normal left ventricular ejection fraction visually estimated at 55%. Normal right ventricular size and function. Moderate to severe left atrial dilatation. Moderate to severe mitral regurgitation. Moderate to severe tricuspid regurgitation. Moderate pulmonary hypertension. Dilated inferior vena cava. Neftaly Orozco M.D. (Electronically Signed) Final Date: 17 March 2018 10:16 MEASUREMENTS (Male / Female) Normal Values 2D ECHO LV Diastolic Diameter PLAX 4.6 cm 4.2 - 5.9 / 3.9 - 5.3 cm LV Systolic Diameter PLAX 3.3 cm 2.1 - 4.0 cm LV Fractional Shortening PLAX 28.3 % 25 - 46 % LV Ejection Fraction 2D Teich 54.7 % IVS Diastolic Thickness 0.9 cm LVPW Diastolic Thickness 1.0 cm LV Relative Wall Thickness 0.4 RV Internal Dim ED PLAX 3.0 cm 1.9 - 3.8 cm LVOT Diameter 2.1 cm Aortic Root Diameter 3.0 cm LA Systolic Diameter LX 5.1 cm 3.0 - 4.0 / 2.7 - 3.8 cm LA Volume 105.0 cm 18 - 58 / 22 - 52 cm Ascending Aorta Diameter 2.9 cm DOPPLER AV Peak Velocity 173.0 cm/s AV Peak Gradient 12.0 mmHg AV Mean Velocity 104.0 cm/s AV Mean Gradient 5.0 mmHg AV Velocity Time Integral 33.1 cm LVOT Peak Velocity 109.0 cm/s LVOT Peak Gradient 4.8 mmHg LVOT Mean Velocity 73.1 cm/s LVOT Mean Gradient 2.0 mmHg LVOT Velocity Time Integral 18.4 cm LVOT Stroke Volume 63.7 cm AV Area Cont Eq vti 1.9 cm AV Area Cont Eq pk 2.2 cm MV Peak Velocity 117.0 cm/s MV Peak Gradient 5.5 mmHg MV Mean Velocity 63.6 cm/s MV Mean Gradient 2.0 mmHg Mitral E Point Velocity 109.0 cm/s MV PHT Velocity 122.0 cm/s MV Deceleration [place] 428.0 cm/s MV Pressure Half Time 85.5 ms MV Area PHT 2.6 cm MV Deceleration Time 155.0 ms TR Peak Velocity 318.0 cm/s TR Peak Gradient 40.4 mmHg Right Atrial Pressure 10.0 mmHg Pulmonary Artery Systolic Pressu 50.4 mmHg Right Ventricular Systolic Press 50.4 mmHg PV Peak Velocity 92.4 cm/s PV Peak Gradient 3.4 mmHg PV Mean Velocity 65.5 cm/s PV Mean Gradient 2.0 mmHg PV Velocity Time Integral 17.8 cm LV E' Lateral Velocity 16.2 cm/s Mitral E to LV E' Lateral Ratio 6.7 LV E' Septal Velocity 7.7 cm/s Mitral E to LV E' Septal Ratio 14.2
[2018-03-17 14:48] VITALS: BP 122/60
--- NOTE | 2018-03-17 17:58 | PN- Cardiology ---
Subjective Subjective: No complaints. He remains in atrial fibrillation with a generally well-controlled ventricular response. Objective Vital Signs and I&Os Vital Signs Date Time Temp Pulse Resp B/P B/P Pulse O2 O2 Flow FiO2 Mean Ox Delivery Rate 03/17 1600 Nasal 2.0L Cannula 03/17 1448 98.5 122 18 122/60 97 Nasal 5.0L Cannula 03/17 0823 129 140/60 03/17 0823 129 140/60 03/17 0822 129 140/60 03/17 0800 95 Nasal 1.0L Cannula 03/17 0624 99.3 129 20 140/60 98 Nasal 3.5L Cannula 03/17 0000 Nasal 1.0L Cannula 03/16 2212 97.5 120 18 130/70 95 Nasal 3.5L Cannula Intake & Output 03/17 1600 03/17 0803/17 0000 03/16 1600 03/16 0803/16 0000 Intake Total 500 410 Output Total 500 Balance 500 -90 Intake, IV 10 Intake, Oral 500 400 Output, Urine 500 Physical Exam: Well-developed, well-nourished elderly male in no acute distress. Vital signs: See above. Neck: No JVD, no bruits. Lungs: Clear to auscultation bilaterally. Heart: S1, S2 with grade 2/6 systolic murmur. Abdomen: Soft, nontender, positive bowel sounds. Extremities: No edema. Assessment/Plan Assessment/Plan [id number] w/ hx of former tobacco use, mild COPD, HTN, HLD, DM, moderate to severe MR & TR, mild LV dysfunction, CAD (angina pectoris prompted stress testing that was positive and led to cardiac catheterization 10/1996 w/ PCI/BMS to proximal LAD stenosis; recurrent angina pectoris w/ positive stress test led to repeat cardiac cath 03/1997 where high-grade stenosis at prior stent site was found & led to successful angioplasty; unstable angina pectoris and discovery of a long critical proximal LAD stenosis that led to CABG 1 w/ GRACE to LAD on ), chronic AF on Eliquis (apixaban) who presented to the ED w/ a markedly low H/H & GI bleed w/ EGD (03/14/2018) revealing nodular gastritis w/ erosions felt to be the source of the anemia. Fortunately, his H/H has stabilized and he has been cleared by GI for anticoagulation. The ventricular response to his afibrillation has been rapid at times. Recommendations: * Continue on telemetry. * Follow-up H/H. * Agree with increasing metoprolol tartrate from 50 mg twice daily to 75 mg twice daily. * Restart anticoagulation. * DVT prophylaxis being addressed. Continue telemetry? Yes
[2018-03-17 22:53] VITALS: BP 128/62
[2018-03-18 06:00] VITALS: BP 130/68
--- NOTE | 2018-03-18 07:06 | PN- Housestaff ---
Subjective Follow-up For: GI bleed A fib with RVR hypomagnesemia Tele-Events Since Last Visit: A fib with HR 90s-130s Subjective: Patient was seen and examined at bedside. He is resting comfortably. He had no acute events overnight. He has no complaints and is eager to be discharged. Patient denies any palpitations, chest pain, shortness of breath. He denies any chest pain, palpitations, nausea, vomiting, fever, chills. Review of Systems Constitutional: Denies: chills, fever. EENTM: Reports: no symptoms. Cardiovascular: Reports: no symptoms. Respiratory: Reports: no symptoms. Gastrointestinal: Reports: no symptoms. Genitourinary: Reports: no symptoms. Musculoskeletal: Reports: no symptoms. Objective Last 24 Hrs of Vital Signs/I&O Vital Signs Date Time Temp Pulse Resp B/P B/P Pulse O2 O2 Flow FiO2 Mean Ox Delivery Rate 03/18 0000 94 Nasal 2.0L Cannula 03/17 2253 99.5 91 16 128/62 97 Nasal 1.5L Cannula 03/17 1600 Nasal 2.0L Cannula 03/17 1448 98.5 122 18 122/60 97 Nasal 5.0L Cannula 03/17 0823 129 140/60 03/17 0823 129 140/60 03/17 0822 129 140/60 03/17 0800 95 Nasal 1.0L Cannula Intake & Output 03/18 0800 03/18 0000 03/17 1600 Intake Total 100 450 500 Output Total Balance 100 450 500 Intake, Oral 100 450 500 Number 1 Bowel Movements Physical Exam General Appearance: Alert, Oriented X3, Cooperative, No Acute Distress Skin Temp/Moisture Exam: Warm/Dry Cardiovascular: Normal S1, Normal S2, tachycardic HR 100s, irregularly irregular Lungs: Clear to Auscultation, Normal Air Movement Abdomen: Normal Bowel Sounds, Soft, No Tenderness Current Medications: Current Medications Sig/Cesar Start time Last Medication Dose Route Stop Time Status Admin Acetaminophen 325 MG Q6 PRN 03/13 2330 AC PO Amlodipine Besylate 5 MG DAILY 03/14 1930 AC 03/17 PO 0823 Apixaban 5 MG BID 03/14 2100 AC 03/17 PO 2034 Atorvastatin Calcium 20 MG 1700 03/14 1700 AC 03/17 PO 1604 Chlorhexidine 1 GM .STK-MED ONE 03/17 0736 DC Gluconate TOP 03/17 0737 Furosemide 20 MG 7:30 AM, & 4:30 PM 03/16 1130 AC 03/17 PO 1604 Insulin Aspart 0 TIDAC 03/14 0800 AC 03/14 SC 1754 Lisinopril 10 MG DAILY 03/14 1930 AC 03/17 PO 0823 Magnesium Sulfate 1 GM Q2H 03/17 1015 CAN Dextrose/Water 100 ML IV 03/17 1414 Magnesium Sulfate 1 GM ONCE ONE 03/17 1015 DC 03/17 Dextrose/Water 100 ML IV 03/17 1414 1050 Metoprolol Succinate 100 MG DAILY 03/14 1927 DC 03/17 PO 0822 Metoprolol Tartrate 75 MG BID 03/17 2100 AC 03/17 PO 2033 Omeprazole 40 MG BID 03/14 2100 AC 03/17 PO 2033 Assessment/Plan Assessment: Patient is a 77-year-old male with a PMH significant for A. fib on Eliquis, who presented to [facility] due to anemia. He was worked up for a GI bleed with an EGD, and was found to be in A. fib with RVR and was transferred to the telemetry floor. #Acute blood loss anemia secondary to GI bleed GI has signed off for now, plan to pursue a colonoscopy as an outpatient -H/H has remained stable #A. fib with RVR Patient is on home dose of Eliquis. Heart rate remains elevated over patient is asymptomatic. Echocardiogram was done and showed moderate pulmonary hypertension, with moderate to severe mitral and tricuspid regurg as well as moderate to severe atrial dilatation, normal LVEF -Patient is stable for discharge -Increased metoprolol to 100 mg BID -Follow cardiology recommendations #Acute hypoxic respiratory failure -successfully weaned off of supplemental O2 Diet: Diabetic diet DVT prophylaxis: Jeramie Becks CODE STATUS: Full code Problem List: 1. Atrial fibrillation with RVR 2. GI bleed 3. Anemia Pain Ratin Pain Location: none Pain Goal: Remain pain free Pain Plan: pain pathway Tomorrow's Labs & Rationales: none
[2018-03-18 07:58] LABS: ABSOLUTE BASOPHIL COUNT 0 /CUMM (0.0-0.2); ABSOLUTE EOSINOPHIL COUNT 0.2 /CUMM (0.0-0.7); ABSOLUTE GRANULOCYTE CT 4.7 /CUMM (1.4-6.5); ABSOLUTE LYMPH COUNT 0.8 /CUMM (1.2-3.4); ABSOLUTE MONOCYTE COUNT 0.6 /CUMM (0.10-0.60); BASOPHIL % 0.8 % (0.0-2.0); GRANULOCYTE % 73.9 % (42.2-75.2); HEMATOCRIT 27.4 % (42-52); MEAN CORPUSCULAR HGB 32.3 PG (27.0-31.0); MEAN CORPUSCULAR HGB CONC 32.8 G/DL (33.0-37.0); MEAN CORPUSCULAR VOLUME 98.3 FL (80.0-94.0); PLATELET COUNT 316 /CUMM (130-400); RBC DISTRIBUTION WIDTH 17.2 % (11.5-14.5); RED BLOOD CELL CT 2.79 /CUMM (4.70-6.10); WHITE BLOOD CELL COUNT 6.3 /CUMM (4.8-10.8)
[2018-03-18] MEDS ORDERED: METOPROLOL TART50 M1 PO ×2 (08:46→14:05)
[2018-03-18] MEDS ORDERED: PROTONIX40 M3 PO ×2 (08:49→14:05)
[2018-03-18 09:28] VITALS: BP 118/60
[2018-03-18 12:57] VITALS: BP 124/60
[2018-03-18] MEDS ORDERED: PLAVIX75 M1 PO ×2 (13:16→14:05)
[2018-03-18 14:27] VITALS: BP 112/64
--- NOTE | 2018-03-18 19:58 | Discharge Summary ---
Visit Information Visit Dates Admission Date: 03/13/18 Discharge Date: 03/18/18 Hospital Course Course Attending Physician: Lucille Muñoz MD Primary Care Physician: Dmitry MAYEN,Darin Mcmanus Consulting Request: 1 Consulting Specialty: Cardiology Consulting Request: 2 Consulting Specialty: Gastroenterology Hospital Course: Patient is a 77-year-old male with a PMH significant for CAD status post CABG, HTN, DM, diverticulosis, A. fib who was sent into the [facility] ED by his PCP for symptomatic anemia and dark stools. Vital signs on presentation: Pulse 113, T97.0, RR 18, BP 115/68 Labs on admission: H/H6.2/18, sodium 125, potassium 4.5, creatinine 1.4, magnesium 1.1 Patient was initially admitted to the general medicine floor for treatment of acute blood loss anemia, he was subsequently transferred to the telemetry floor after becoming tachycardic during his EGD. #Acute blood loss anemia secondary to GI bleed Patient was transfused 2 units PRBCs, GI was consulted. Rectal exam revealed guaiac positive stool. EGD was performed on day 1 of hospitalization which showed nodular gastritis with erosions. Of note patient was on aspirin and Eliquis for his A. fib. Patient's melena slowly resolved throughout his hospital course. He deferred to have a colonoscopy done as an outpatient. His H&H remained stable throughout the rest of the hospital course. Patient was referred to Dr. Thompson for outpatient colonoscopy. #A. 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 Orozco was consulted. Initially on presentation patient's rate controlling medications were held due to acute bleeding. After the EGD and development of RVR, patient' s home dose of metoprolol succinate 100 mg daily was restarted. Patient continued to have elevated uncontrolled heart rate up to the 170s for brief periods. Metoprolol succinate was stopped and he was started on metoprolol tartrate twice a day and was gradually titrated up to 100 mg metoprolol tartrate twice a day which kept his average heart rate between 90s and 100s. Eliquis was restarted after the EGD and patient was started on Plavix as GI was recommending against restarting aspirin. #CHANEL This likely represented prerenal azotemia and resolved as patient was transfused and rehydrated. #Hyponatremia This is monitored closely and was not corrected to quickly, showed a general trend of improvement throughout the hospitalization. Sodium was 134 on discharge. #Hypomagnesemia Magnesium was repleted orally as well as intravenously. Patient's magnesium remained low at discharge and patient was recommended to begin oral magnesium supplementation and follow-up with his PCP for outpatient blood work. #Acute hypoxic respiratory failure This is likely secondary to anemia and A. fib with RVR. Patient was placed on supplemental O2 nasal cannula which initially was difficult to wean off as patient would drop to mid 80 %s on pulse ox. Patient was successfully weaned off prior to discharge. DVT prophylaxis was initially just mechanical due to active bleeding. He was restarted on eliquis when cleared by GI. Allergies: Coded Allergies: NO KNOWN ALLERGIES (12/05/12) Disposition Summary Disposition Principal Diagnosis: Acute blood loss anemia secondary to GI bleed Additional Diagnosis: Atrial fibrillation with RVR, hypomagnesemia, CHANEL, hyponatremia, acute hypoxic respiratory failure Discharge Disposition: home or self care Discharge Instructions General Discharge Information Code Status: Full Code Patient's Diet: Heart Healthy Patient's Activity: as tolerated Follow-Up Instructions/Appts: Follow-up PCP in 1 week. Follow-up with Dr. Thompson within 1 weeks of discharge to schedule a colonoscopy. Follow-up with Dr. Orozco within 1 week of discharge. Medications at Discharge Discharge Medications: Stop taking the following medications: Metoprolol Succinate (Metoprolol Succinate) 100 MG TAB.ER.24H ORAL DAILY Aspirin (Ecotrin*) 81 MG TABLET.DR ORAL DAILY Continue taking these medications: Potassium Chloride (Potassium Chloride) 10 MEQ CAPSULE.ER 1 Capsule ORAL DAILY Comments: DID NOT RECEIVE WHILE IN HOSPITAL Simvastatin (Simvastatin*) 20 MG TABLET 1 Tablet ORAL Every night Comments: Last Taken:03/17/18 Time: 4:00 PM Apixaban (Eliquis) 5 MG TABLET 1 Tablet ORAL TWICE DAILY Comments: Last Taken:03/18/18 Time: 9:30 AM Ramipril (Ramipril) 10 MG CAPSULE 1 Capsule ORAL DAILY Comments: Last Taken:03/18/18 Time: 1:00 PM RECEIVED SUBSTITUTE LISINOPRIL 10 MG DAILY WHILE IN HOSPITAL Amlodipine Besylate (Norvasc) 5 MG TABLET 1 Tablet ORAL DAILY Comments: Last Taken:03/18/18 Time: 1:00 PM Furosemide (Furosemide) 20 MG TABLET 1 Tablet ORAL DAILY Comments: Last Taken:03/18/18 Time: 8:00 AM Metformin HCl (Metformin HCl ER) 500 MG TAB.ER.24H 1 Tablet ORAL DAILY Comments: DID NOT RECEIVE WHILE IN HOSPITAL Start taking the following new medications: Clopidogrel Bisulfate (Plavix) 75 MG TABLET 1 Tablet ORAL DAILY Qty = 30 No Refills Instructions: . Comments: DID NOT RECEIVE WHILE IN HOSPITAL Metoprolol Tartrate (Metoprolol Tartrate) 50 MG TABLET 100 Milligram ORAL TWICE DAILY Qty = 60 No Refills Instructions: . Comments: Last Taken:03/18/18 Time: 10:30 AM Pantoprazole Sodium (Protonix) 40 MG TABLET.DR 1 Tablet ORAL DAILY Qty = 30 No Refills Instructions: . Comments: Last Taken:03/18/18 Time: 9:30 AM RECEIVED SUBSTITUTE OMEPRAZOLE 40 MG TWICE A DAY WHILE IN HOSPITAL Copies To: Ernesto MAYEN,Neftaly Dee; Dmitry MAYEN,Darin Mcmanus; Jay AMYEN,Flynn Devi
--- NOTE | 2018-03-19 14:03 | Event Note ---
Event Note Event Note: Spoke with Mr. Phelps over the phone, and recommended that he start taking an [id number] magnesium supplement, this was left off of the CMR. Explained that he should tell both Dr. Orozco and his PCP that he is taking this. He was instructed to take it for 1 month and ask his PCP for further recommendations on continuing or discontinuing this medication.
[2018-04-17] MEDS ORDERED: CENTRUM SILVER1 EAC4 PO (11:03)
[2018-04-17] MEDS ORDERED: MAGNESIUM250 M2 PO (11:04)
[2018-04-17] MEDS ORDERED: CLOPIDOGREL75 M1 PO (11:07)
[2018-04-17] MEDS ORDERED: LOPRESSOR50 M1 PO (11:07)
== END 2018-03-18 15:15 | DRG 377 ==
LOC: ERH 21:14 → 2NA 22:25 → ERHI 22:25 → ENRESERV 03-14 → 2NA 03-14 00:52 → 1NO 03-14 16:26 → ENPENDDIS 03-18 14:05 → ENTRNSPT 03-18 14:56 → EDTRNSPT 03-18 15:06 → EDTRNSPTSTS 03-18 15:06 → 1NO 03-18 15:15 → CMPTRNSPT 03-18 15:20
PROVIDERS: Dermatology; Emergency Medicine; Family Medicine; Hospitalist; Internal Medicine Interventional Cardiology; Pediatrics; Student in an Organized Health Care Education/Training Program
PROC: 0DB68ZX Excision of Stomach, Via Natural or Artificial Opening Endoscopic, Diagnostic (ICD-10-PCS; principal; 2018-03-13)
PROC: 30233N1 Transfusion of Nonautologous Red Blood Cells into Peripheral Vein, Percutaneous Approach (ICD-10-PCS; principal; 2018-03-13)
DX: K92.2 Gastrointestinal hemorrhage, unspecified (principal); J96.01 Acute respiratory failure with hypoxia; N17.9 Acute kidney failure, unspecified; E11.8 Type 2 diabetes mellitus with unspecified complications; D68.9 Coagulation defect, unspecified; E83.42 Hypomagnesemia; I48.91 Unspecified atrial fibrillation; E86.0 Dehydration; E87.1 Hypo-osmolality and hyponatremia; D62 Acute posthemorrhagic anemia; D72.829 Elevated white blood cell count, unspecified; E78.5 Hyperlipidemia, unspecified; I10 Essential (primary) hypertension; K92.1 Melena; Z79.01 Long term (current) use of anticoagulants; Z95.1 Presence of aortocoronary bypass graft; Z98.61 Coronary angioplasty status; I25.10 Atherosclerotic heart disease of native coronary artery without angina pectoris; Z87.891 Personal history of nicotine dependence; R79.89 Other specified abnormal findings of blood chemistry; R00.0 Tachycardia, unspecified
CPT/HCPCS: 1NSP; ERO; 36415; 36592; 71045; 81001; 82436; 86920; 88305; 88312; 93005; 93010; 93306; 96374; 99291; J1940; J7508; P9016